=== PATIENT | female | born 1945 | race Caucasian/White ===

== ENCOUNTER 2021-05-30 09:58 | Inpatient (IN) | payer BC, MEDICARE ==
--- NOTE | 2021-05-30 10:46 | EDM.PDOC ---
ED HPI GENERAL MEDICAL PROBLEM - General Chief Complaint: General Stated Complaint: WEAK VIA NORMAL Time Seen by Provider: 05/30/21 10:20 Source of Information: Reports: Patient, EMS, Family History Limitations: Reports: No Limitations - History of Present Illness INITIAL COMMENTS - FREE TEXT/NARRATIVE: 75-year-old female brought in by ambulance because of progressive weakness, inability to care for herself, persistent low back and hip pain and generalized malaise. 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 She has not seen a primary care provider in 12 years. She does not consume alcohol. They set her up with an outpatient appointment for gastroenterology and neurology but the patient feels like she is progressively worsening at home, becoming more weak and unable to get around her apartment so she called the ambulance and asked to be brought here for a "second opinion". She is tearful, very depressed, and shares several stories of past visits to specialty providers such as neurology that she described as "humiliating". She was not impressed with her visit to [facility] because they did not listen to her. She feels she has been dwindling and progressively worsening for weeks to months. The records were obtained from [facility]. Onset: Unknown/Unsure Duration: Chronic Location: Reports: Other (Most of her physical symptoms are in her low back and hips, chronic pain issues) Worsens with: Reports: Other (Trying to ambulate is very difficult, her legs are "giving out".) Associated Symptoms: Reports: Malaise, Weakness, Other (Denies abdominal pain). Denies: Confusion, Chest Pain, Cough, Fever/Chills, Shortness of Breath Right Leg Pain Score (Numeric/FACES): 4 - Related Data Allergies Allergy/AdvReac Type Severity Reaction Status Date / Time No Known Allergies Allergy Verified 05/30/21 10:08 Home Meds: Home Meds Cyclobenzaprine [Flexeril] 10 mg PO ASDIRECTED PRN 05/30/21 [History] traMADol [Ultram] 50 mg PO ASDIRECTED PRN 05/30/21 [History] Social & Family History - Tobacco Use Tobacco Use Status *Q: Current Every Day Tobacco User Years of Tobacco use: 40 Packs/Tins Daily: 1 - Recreational Drug Use Recreational Drug Use: No ED ROS GENERAL - Review of Systems Review Of Systems: See Below Constitutional: Reports: Malaise, Decreased Appetite. Denies: Fever, Chills HEENT: Denies: Vision Change Respiratory: Denies: Shortness of Breath Cardiovascular: Denies: Chest Pain, Palpitations GI/Abdominal: Reports: Decreased Appetite, Distension. Denies: Abdominal Pain, Vomiting : Reports: Other (No symptoms but urine is dark) Musculoskeletal: Reports: Back Pain, Other (Bilateral hip pain) Skin: Reports: Jaundice, Pallor Neurological: Reports: Difficulty Walking, Weakness, Gait Disturbance ED EXAM, GENERAL - Physical Exam Exam: See Below Exam Limited By: No Limitations General Appearance: Alert, No Apparent Distress, Other (Very weak appearing, and unkempt tearful elderly female) Eye Exam: Bilateral Eye: EOMI, Other (Obvious scleral jaundice is present) Head: Atraumatic Neck: Supple, Non-Tender Respiratory/Chest: Lungs Clear Cardiovascular: Regular Rate, Rhythm, No Murmur GI/Abdominal: Soft, Non-Tender Extremities: Pedal Edema, Other (Patient has symmetric 1+ pitting edema of the lower extremities through the ankles and feet) Neurological: Alert, Oriented, No Motor/Sensory Deficits. No: Inattentive, Confused Psychiatric: Flat Affect Skin Exam: Warm, Dry, Other (Patient looks pale and possibly jaundiced) Course - Vital Signs Last Recorded V/S: Last Vital Signs Temp 97.9 F 05/30/21 12:01 Pulse 67 05/30/21 13:11 Resp 16 05/30/21 13:11 BP 155/52 H 05/30/21 13:11 Pulse Ox 94 L 05/30/21 13:11 - Orders/Labs/Meds Orders: Medication Orders Enoxaparin Sodium (Enoxaparin 40 Mg/0.4 Ml Syringe) 40 mg SUBCUT Q24H [facility] Last Admin: 05/30/21 14:33 Dose: 40 mg Documented by: JADEN Ondansetron HCl (Ondansetron 4 Mg/2 Ml Sdv) 4 mg IV Q4H PRN PRN Reason: Nausea/Vomiting Polyethylene Glycol (Polyethylene Glycol 3350 Powder 17 Gm Packet) 17 gm PO DAILY PRN PRN Reason: Constipation Tramadol HCl (Tramadol 50 Mg Tab) 50 mg PO Q4H PRN PRN Reason: Pain Last Admin: 05/30/21 14:37 Dose: 50 mg Documented by: JADEN Labs: Laboratory Tests 05/30/21 05/30/21 05/30/21 Range/Units 10:50 10:50 10:50 WBC 9.5 (4.5-11.0) K/uL RBC 3.18 L (3.30-5.50) M/uL Hgb 11.1 L (12.0-15.0) g/dL Hct 31.4 L (36.0-48.0) % MCV 99 H (80-98) fL MCH 35 H (27-31) pg MCHC 35 (32-36) % Plt Count 166 (150-400) K/uL Neut % (Auto) 67.9 H (36-66) % Lymph % (Auto) 16.3 L (24-44) % [place] % (Auto) 11.7 H (2-6) % Eos % (Auto) 3.3 (2-4) % Baso % (Auto) 0.8 (0-1) % PT (9.2-10.6) sec INR Sodium 138 L (140-148) mmol/L Potassium 3.5 L (3.6-5.2) mmol/L Chloride 110 H (100-108) mmol/L Carbon Dioxide 20 L (21-32) mmol/L Anion Gap 11.5 (5.0-14.0) mmol/L BUN 13 (7-18) mg/dL Creatinine 0.9 (0.6-1.0) mg/dL Est Cr Clr Drug Dosing 46.05 mL/min Estimated GFR (MDRD) > 60 (>60) Glucose 84 (74-106) mg/dL Lactic Acid 1.3 (0.4-2.0) mmol/L Calcium 8.0 L (8.5-10.1) mg/dL Total Bilirubin 3.0 H (0.2-1.0) mg/dL AST 128 H (15-37) U/L ALT 101 H (12-78) U/L Alkaline Phosphatase 187 H (46-116) U/L Ammonia (11-32) umol/L C-Reactive Protein 2.58 H (0.0-0.3) mg/dL Total Protein 6.1 L (6.4-8.2) g/dL Albumin 1.7 L (3.4-5.0) g/dL Globulin 4.4 H (2.3-3.5) g/dL Albumin/Globulin Ratio 0.4 L (1.2-2.2) 05/30/21 05/30/21 Range/Units 12:05 12:05 WBC (4.5-11.0) K/uL RBC (3.30-5.50) M/uL Hgb (12.0-15.0) g/dL Hct (36.0-48.0) % MCV (80-98) fL MCH (27-31) pg MCHC (32-36) % Plt Count (150-400) K/uL Neut % (Auto) (36-66) % Lymph % (Auto) (24-44) % [place] % (Auto) (2-6) % Eos % (Auto) (2-4) % Baso % (Auto) (0-1) % PT 14.6 H (9.2-10.6) sec INR 1.5 Sodium (140-148) mmol/L Potassium (3.6-5.2) mmol/L Chloride (100-108) mmol/L Carbon Dioxide (21-32) mmol/L Anion Gap (5.0-14.0) mmol/L BUN (7-18) mg/dL Creatinine (0.6-1.0) mg/dL Est Cr Clr Drug Dosing mL/min Estimated GFR (MDRD) (>60) Glucose (74-106) mg/dL Lactic Acid (0.4-2.0) mmol/L Calcium (8.5-10.1) mg/dL Total Bilirubin (0.2-1.0) mg/dL AST (15-37) U/L ALT (12-78) U/L Alkaline Phosphatase (46-116) U/L Ammonia 15 (11-32) umol/L C-Reactive Protein (0.0-0.3) mg/dL Total Protein (6.4-8.2) g/dL Albumin (3.4-5.0) g/dL Globulin (2.3-3.5) g/dL Albumin/Globulin Ratio (1.2-2.2) Meds: Medications Generic Name Dose Route Start Last Admin Trade Name Freq PRN Reason Stop Dose Admin Enoxaparin Sodium 40 mg 05/30/21 14:00 05/30/21 14:33 Enoxaparin 40 Mg/0.4 Ml Syringe SUBCUT 40 mg Q24H JED Administration Ondansetron HCl 4 mg 05/30/21 13:11 Ondansetron 4 Mg/2 Ml Sdv IV Q4H PRN Nausea/Vomiting Polyethylene Glycol 17 gm 05/30/21 13:11 Polyethylene Glycol 3350 Powder 17 Gm Packet PO DAILY PRN Constipation Tramadol HCl 50 mg 05/30/21 13:11 05/30/21 14:37 Tramadol 50 Mg Tab PO 50 mg Q4H PRN Administration Pain - Re-Assessments/Exams Free Text/Narrative Re-Assessment/Exam: 05/30/21 12:28 Records from [facility] were reviewed thoroughly, CRP was elevated, lactic acid elevated, and bilirubin 4.7. Labs were repeated, patient remained stable and labs actually returned improved, lactic acid is now normal, bilirubin 3.0 and CRP improved. She still feels too weak to go home, I feel she may be at risk of falling or is unable to care for herself at home so I asked Dr. Richey to consider admission for strengthening and rehydration. Ammonia was added which was normal. Departure - Departure Time of Disposition: 12:55 Disposition: Refer to Observation Clinical Impression: Generalized weakness Cirrhosis of liver Qualifiers: Hepatic cirrhosis type: unspecified hepatic cirrhosis Ascites presence: with ascites Qualified Code(s): K74.60 - Unspecified cirrhosis of liver; R18.8 - Other ascites - Discharge Information Sepsis Event Note (ED) - Evaluation Sepsis Screening Result: No Definite Risk - Focused Exam Vital Signs: Vital Signs Temp Pulse Resp BP Pulse Ox 05/30/21 12:01 97.9 F 87 14 152/49 H 98 05/30/21 10:00 98.3 F 74 18 151/59 H 94 L
[2021-05-30] MEDS ORDERED: traMADol 50 MG Tab PO PRN (13:11)
[2021-05-30] MEDS ORDERED: Ondansetron 4 MG/2 ML SDV IV PRN (13:11)
--- NOTE | 2021-05-30 13:11 | PCM.HP.2 ---
H&P History of Present Illness - General Date of Service: 05/30/21 Admit Problem/Dx: Admission Diagnosis/Problem Admission Diagnosis/Problem Weakness Source of Information: Patient, Provider, RN Notes Reviewed History Limitations: Reports: No Limitations - History of Present Illness Initial Comments - Free Text/Narative: Ms. Ndiaye is a 75-year-old woman who was admitted through the emergency department with generalized weakness, low back pain, left leg pain/weakness, and hepatic cirrhosis. She has had difficulty with low back and leg pain for the past several years. Approximately 1 year ago pain became worse and she has had a hard time functioning. Pain is been worse over the past few weeks and for the last week she is experienced weakness in her left leg. She was seen and evaluated in the emergency department at another facility last week, because of progressive weakness. Laboratory studies showed elevated liver tests with bilirubin of just over 4. CT scan of the abdomen showed evidence of hepatic cirrhosis. She was able to ambulate at that time so she was discharged home and recommended follow-up with gastroenterology. Over the last week she has d eveloped weakness in her left leg, to the point that she has been unable to ambulate. She was brought into our emergency department by ambulance. Laboratory studies obtained today show improvement in liver studies, bilirubin is now 3.0. She denies any history of significant alcohol use and prior to last week was unaware that she had significant liver disease. She has not been seen for regular health care over the past 12 years. Right Leg Pain Score (Numeric/FACES): 4 - Related Data Allergies/Adverse Reactions: Allergies Allergy/AdvReac Type Severity Reaction Status Date / Time No Known Allergies Allergy Verified 05/30/21 10:08 Home Medications: Home Meds Cyclobenzaprine [Flexeril] 10 mg PO ASDIRECTED PRN 05/30/21 [History] traMADol [Ultram] 50 mg PO ASDIRECTED PRN 05/30/21 [History] Social & Family History - Tobacco Use Tobacco Use Status *Q: Current Every Day Tobacco User Years of Tobacco use: 40 Packs/Tins Daily: 1 - Recreational Drug Use Recreational Drug Use: No H&P Review of Systems - Review of Systems: Review Of Systems: See Below General: Reports: Weakness, Fatigue, Decreased Appetite. Denies: Fever, Chills HEENT: Reports: No Symptoms Pulmonary: Reports: No Symptoms Cardiovascular: Reports: No Symptoms Gastrointestinal: Reports: No Symptoms Genitourinary: Reports: No Symptoms Musculoskeletal: Reports: Back Pain, Leg Pain Skin: Reports: No Symptoms Psychiatric: Reports: No Symptoms Neurological: Reports: Difficulty Walking, Weakness. Denies: Confusion, Dizziness, Change in Speech Hematologic/Lymphatic: Reports: No Symptoms Immunologic: Reports: No Symptoms Exam - Exam Exam: See Below - Vital Signs Vital Signs: Last Vital Signs Temp 97.9 F 05/30/21 12:01 Pulse 87 05/30/21 12:01 Resp 14 05/30/21 12:01 BP 152/49 H 05/30/21 12:01 Pulse Ox 98 05/30/21 12:01 Weight: 130 lb - Exam Quality Assessment: DVT Prophylaxis General: Alert, Oriented, Cooperative, Moderate Distress HEENT: Conjunctiva Clear, Hearing Intact, Mucosa Moist & [place], Normal Nasal Septum, Posterior Pharynx Clear, Pupils Equal Neck: Supple, Trachea Midline Lungs: Clear to Auscultation, Normal Respiratory Effort Cardiovascular: Regular Rate, Regular Rhythm, Normal S1, Normal S2 GI/Abdominal Exam: Soft, Non-Tender, No Organomegaly, No Distention Extremities: Non-Tender, No Pedal Edema Skin: Warm, Dry, Intact Neurological: Cranial Nerves Intact, Normal Speech, Sensation Intact, Focal Deficit (Left leg weakness). No: Strength Equal Bilateral Neuro Extensive - Mental Status: Alert, Oriented x3, Normal Mood/Affect, Normal Cognition, Memory Intact - Patient Data Lab Results Last 24 hrs: Laboratory Results - last 24 hr 05/30/21 05/30/21 05/30/21 Range/Units 10:50 10:50 10:50 WBC 9.5 (4.5-11.0) K/uL RBC 3.18 L (3.30-5.50) M/uL Hgb 11.1 L (12.0-15.0) g/dL Hct 31.4 L (36.0-48.0) % MCV 99 H (80-98) fL MCH 35 H (27-31) pg MCHC 35 (32-36) % Plt Count 166 (150-400) K/uL Neut % (Auto) 67.9 H (36-66) % Lymph % (Auto) 16.3 L (24-44) % [place] % (Auto) 11.7 H (2-6) % Eos % (Auto) 3.3 (2-4) % Baso % (Auto) 0.8 (0-1) % PT (9.2-10.6) sec INR Sodium 138 L (140-148) mmol/L Potassium 3.5 L (3.6-5.2) mmol/L Chloride 110 H (100-108) mmol/L Carbon Dioxide 20 L (21-32) mmol/L Anion Gap 11.5 (5.0-14.0) mmol/L BUN 13 (7-18) mg/dL Creatinine 0.9 (0.6-1.0) mg/dL Est Cr Clr Drug Dosing 46.05 mL/min Estimated GFR (MDRD) > 60 (>60) Glucose 84 (74-106) mg/dL Lactic Acid 1.3 (0.4-2.0) mmol/L Calcium 8.0 L (8.5-10.1) mg/dL Total Bilirubin 3.0 H (0.2-1.0) mg/dL AST 128 H (15-37) U/L ALT 101 H (12-78) U/L Alkaline Phosphatase 187 H (46-116) U/L Ammonia (11-32) umol/L C-Reactive Protein 2.58 H (0.0-0.3) mg/dL Total Protein 6.1 L (6.4-8.2) g/dL Albumin 1.7 L (3.4-5.0) g/dL Globulin 4.4 H (2.3-3.5) g/dL Albumin/Globulin Ratio 0.4 L (1.2-2.2) 05/30/21 05/30/21 Range/Units 12:05 12:05 WBC (4.5-11.0) K/uL RBC (3.30-5.50) M/uL Hgb (12.0-15.0) g/dL Hct (36.0-48.0) % MCV (80-98) fL MCH (27-31) pg MCHC (32-36) % Plt Count (150-400) K/uL Neut % (Auto) (36-66) % Lymph % (Auto) (24-44) % [place] % (Auto) (2-6) % Eos % (Auto) (2-4) % Baso % (Auto) (0-1) % PT 14.6 H (9.2-10.6) sec INR 1.5 Sodium (140-148) mmol/L Potassium (3.6-5.2) mmol/L Chloride (100-108) mmol/L Carbon Dioxide (21-32) mmol/L Anion Gap (5.0-14.0) mmol/L BUN (7-18) mg/dL Creatinine (0.6-1.0) mg/dL Est Cr Clr Drug Dosing mL/min Estimated GFR (MDRD) (>60) Glucose (74-106) mg/dL Lactic Acid (0.4-2.0) mmol/L Calcium (8.5-10.1) mg/dL Total Bilirubin (0.2-1.0) mg/dL AST (15-37) U/L ALT (12-78) U/L Alkaline Phosphatase (46-116) U/L Ammonia 15 (11-32) umol/L C-Reactive Protein (0.0-0.3) mg/dL Total Protein (6.4-8.2) g/dL Albumin (3.4-5.0) g/dL Globulin (2.3-3.5) g/dL Albumin/Globulin Ratio (1.2-2.2) Result Diagrams: 05/30/21 10:50 05/30/21 10:50 Sepsis Event Note - Evaluation Sepsis Screening Result: No Definite Risk - Focused Exam Vital Signs: Vital Signs Temp Pulse Resp BP Pulse Ox 05/30/21 12:01 97.9 F 87 14 152/49 H 98 05/30/21 10:00 98.3 F 74 18 151/59 H 94 L *Q Meaningful Use (ADM) - VTE Risk Assess *Q Each Risk Factor Represents 1 Point: Obesity ( BMI > 25 kg/m2) Total Score 1 Point Risk Factors: 1 Each Risk Factor Represents 2 Points: Age 60 - 74 Years Total Score 2 Point Risk Factors: 2 Each Risk Factor Represents 3 Points: None Total Score 3 Point Risk Factors: 0 Each Risk Factor Represents 5 Points: None Total Score 5 Point Risk Factors: 0 Venous Thromboembolism Risk Factor Score *Q: 3 Problem List Initiated/Reviewed/Updated: Yes Orders Last 24hrs: Active Orders 24 hr Category Date Time Status Patient Status Manage Transfer [TRANSFER] Routine ADT 05/30/21 12:19 Active Resuscitation Status Routine Resus Stat 05/30/21 12:21 Ordered Assessment/Plan Comment:: ASSESSMENT AND PLAN LOW BACK AND LEFT LEG PAIN-associated with left leg weakness over the past week. She has had pain for some time but it has been significantly worse to the point that she is unable to ambulate. -CT scan of the head with and without contrast -MRI of the low back in a.m. -Pain medication as needed -Physical therapy consult HEPATIC CIRRHOSIS-underlying etiology not apparent, she strongly denies alcohol use. -Further laboratory tests; hepatitis profile, TU, ferritin, ceruloplasmin, anti-smooth muscle antibody, and antimitochondrial antibody -Outpatient follow-up with gastroenterology GENERALIZED WEAKNESS-likely secondary to low back pain and left leg weakness MAINTENANCE ISSUES -DVT prophylaxis; Lovenox 40 mg subcu daily -GI prophylaxis; not indicated -Uribe catheter; not indicated -Nutrition; regular diet -Nicotine dependence; not required CODE STATUS-FULL CODE ADMISSION STATUS-this patient will be admitted to observation status, expect no more than a one night hospital stay for evaluation and management of problems as outlined above. DISPOSITION-anticipate discharge to home after the hospital stay. PRIMARY CARE PROVIDER-she currently does not have a primary care provider - Mortality Measure Prognosis:: Good
[2021-05-30 14:07] LABS: CORONAVIRUS COVID-19 NAA NEGATIVE (NEGATIVE)
[2021-05-30] MEDS: Enoxaparin 40 MG/0.4 ML Syringe SUBCUT SCH (14:33)
[2021-05-30] MEDS ORDERED: Iopamidol 612 MG/ML 100 ML Bottle IV SCH (16:30)
[2021-05-30] MEDS ORDERED: Sodium Chloride 0.9% 80 ML IV SCH (16:30)
[2021-05-30] MEDS ORDERED: HYDROmorphone 0.5 MG/0.5 ML Syringe IVPUSH PRN (16:45)
[2021-05-30] MEDS ORDERED: Potassium Chloride 20 MEQ Tab.ER PO ONE (17:09)
[2021-05-30] MEDS ORDERED: Sodium Chloride 0.9% 1,000 ML IV SCH (17:15)
--- NOTE | 2021-05-30 17:56 | CRLCT ---
For Patients: As a result of the Century Cures Act, medical imaging exams and procedure reports are released immediately into your electronic medical record. You may view this report before your referring provider. If you have questions, please contact your health care provider. INDICATION: Left leg weakness for 1 week TECHNIQUE: Head CT without and with 100 cc Isovue-300 IV contrast. COMPARISON: None FINDINGS: CSF spaces: Within normal limits for age. Brain parenchyma: There are nonspecific low attenuation white matter changes consistent with chronic microvascular disease. No sign of mass, hemorrhage, or midline shift. Bilateral basal ganglia lacunar infarctions appear old. There is a 1.1 x 1.1 cm round hypodensity adjacent to body of the right lateral ventricle. No abnormal enhancement. Skull base and calvarium: The visualized paranasal sinuses and mastoid air cells demonstrate no acute or significant findings. The visualized orbits are grossly unremarkable. No skull fractures. IMPRESSION: 1. Round hypodensity adjacent to the body of the right lateral ventricle, indeterminate. This could represent a subacute or old lacunar infarction. There is no surrounding edema. Multiple old bilateral basal ganglia lacunar infarctions are also identified. 2. No abnormal enhancement. Please note that all CT scans at this facility use dose modulation, iterative reconstruction, and/or weight-based dosing when appropriate to reduce radiation dose to as low as reasonably achievable. Dictated by Greta Stapleton MD @ 05/30/2021 5:55:11 PM (Electronically Signed)
[2021-05-31] MEDS: oxyCODONE 5 MG Tab PO PRN ×3 (08:37→21:52)
[2021-05-31] MEDS ORDERED: LORazepam 0.5 MG Tab PO ONE (10:00)
[2021-05-31 11:11] LABS: HBSAG SCREEN Negative (Negative); HEP A AB, IGM Negative (Negative); HEP B CORE AB, IGM Negative (Negative); HEP C VIRUS AB 0.2 s/co ratio (0.0-0.9)
[2021-05-31] MEDS: Enoxaparin 40 MG/0.4 ML Syringe SUBCUT SCH (13:13)
--- NOTE | 2021-05-31 15:28 | PCM.PN ---
- General Info Date of Service: 05/31/21 Subjective Update: Ms. Ndiaye reports improved pain control since admission, with use of current pain meds. Liver studies have been stable today compared to admission. 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 CT scan of the lumbar spine is pending at the time of this dictation. Functional Status: Reports: Urinating - Review of Systems General: Reports: Weakness, Fatigue. Denies: Fever, Chills Pulmonary: Reports: No Symptoms Cardiovascular: Reports: No Symptoms Gastrointestinal: Reports: No Symptoms Musculoskeletal: Reports: Back Pain, Leg Pain - Patient Data Vitals - Most Recent: Last Vital Signs Temp 97.5 F 05/31/21 10:11 Pulse 95 05/31/21 10:11 Resp 20 05/31/21 10:11 BP 129/44 L 05/31/21 10:11 Pulse Ox 93 L 05/31/21 10:11 Weight - Most Recent: 147 lb I&O - Last 24 Hours: Intake & Output 05/31/21 05/31/21 05/31/21 06:59 14:59 22:59 Intake Total 1999 220 Balance 1999 220 Lab Results Last 24 Hours: Laboratory Results - last 24 hr 05/30/21 05/31/21 05/31/21 Range/Units 13:30 05:41 05:41 WBC 9.4 (4.5-11.0) K/uL RBC 3.19 L (3.30-5.50) M/uL Hgb 10.9 L (12.0-15.0) g/dL Hct 31.7 L (36.0-48.0) % MCV 99 H (80-98) fL MCH 34 H (27-31) pg MCHC 34 (32-36) % Plt Count 167 (150-400) K/uL Neut % (Auto) 65.0 (36-66) % Lymph % (Auto) 19.7 L (24-44) % Jack % (Auto) 10.9 H (2-6) % Eos % (Auto) 3.7 (2-4) % Baso % (Auto) 0.7 (0-1) % Sodium 139 L (140-148) mmol/L Potassium 3.8 (3.6-5.2) mmol/L Chloride 112 H (100-108) mmol/L Carbon Dioxide 21 (21-32) mmol/L Anion Gap 9.8 (5.0-14.0) mmol/L BUN 13 (7-18) mg/dL Creatinine 0.9 (0.6-1.0) mg/dL Est Cr Clr Drug Dosing 42.01 mL/min Estimated GFR (MDRD) > 60 (>60) Glucose 68 L (74-106) mg/dL Calcium 8.0 L (8.5-10.1) mg/dL Magnesium 1.8 (1.8-2.4) mg/dL Ferritin 334 (8-388) ng/ml Total Bilirubin 2.9 H (0.2-1.0) mg/dL AST 115 H (15-37) U/L ALT 95 H (12-78) U/L Alkaline Phosphatase 180 H (46-116) U/L Lactate Dehydrogenase 329 H (82-234) U/L Total Protein 6.1 L (6.4-8.2) g/dL Albumin 1.7 L (3.4-5.0) g/dL Globulin 4.4 H (2.3-3.5) g/dL Albumin/Globulin Ratio 0.4 L (1.2-2.2) Hepatitis A IgM Ab Negative (Negative) Hep Bs Antigen Negative (Negative) Hep B Core IgM Ab Negative (Negative) Hepatitis C Antibody 0.2 (0.0-0.9) s/co ratio Med Orders - Current: Current Medications Enoxaparin Sodium (Enoxaparin 40 Mg/0.4 Ml Syringe) 40 mg SUBCUT Q24H [facility] Last Admin: 05/31/21 13:13 Dose: 40 mg Documented by: Hydromorphone HCl (Hydromorphone 0.5 Mg/0.5 Ml Syringe) 0.5 mg IVPUSH Q3H PRN PRN Reason: Pain (severe 7-10) Ondansetron HCl (Ondansetron 4 Mg/2 Ml Sdv) 4 mg IV Q4H PRN PRN Reason: Nausea/Vomiting Oxycodone HCl (Oxycodone 5 Mg Tab) 5 mg PO Q4H PRN PRN Reason: Pain (moderate 4-6) Last Admin: 05/31/21 08:37 Dose: 5 mg Documented by: Polyethylene Glycol (Polyethylene Glycol 3350 Powder 17 Gm Packet) 17 gm PO DAILY PRN PRN Reason: Constipation Discontinued Medications Sodium Chloride (Normal Saline) 80 mls @ 3 mls/sec IV ASDIRECTED [facility] Stop: 05/30/21 16:31 Last Admin: 05/30/21 16:44 Dose: 3 mls/sec Documented by: Sodium Chloride (Normal Saline) 1,000 mls @ 100 mls/hr IV ASDIRECTED [facility] Last Admin: 05/30/21 18:11 Dose: 100 mls/hr Documented by: Iopamidol (Iopamidol 612 Mg/Ml 100 Ml Bottle) 100 ml IV . DIRECTED [facility] Stop: 05/30/21 16:31 Last Admin: 05/30/21 16:44 Dose: 100 ml Documented by: Lorazepam (Lorazepam 0.5 Mg Tab) 0.5 mg PO ONETIME ONE Stop: 05/31/21 10:01 Last Admin: 05/31/21 11:05 Dose: 0.5 mg Documented by: Potassium Chloride (Potassium Chloride 20 Meq Tab.Er) 40 meq PO ONETIME ONE Stop: 05/30/21 17:10 Last Admin: 05/30/21 18:03 Dose: 40 meq Documented by: Tramadol HCl (Tramadol 50 Mg Tab) 50 mg PO Q4H PRN PRN Reason: Pain Last Admin: 05/30/21 14:37 Dose: 50 mg Documented by: - Exam Quality Assessment: DVT Prophylaxis General: Alert, Oriented, Cooperative, Moderate Distress Lungs: Clear to Auscultation, Normal Respiratory Effort Cardiovascular: Regular Rate, Regular Rhythm, No Murmurs GI/Abdominal Exam: Soft, Non-Tender, No Organomegaly, No Distention Extremities: Non-Tender, Pedal Edema - Patient Data Lab Results Last 24 hrs: Laboratory Results - last 24 hr 05/30/21 05/31/21 05/31/21 Range/Units 13:30 05:41 05:41 WBC 9.4 (4.5-11.0) K/uL RBC 3.19 L (3.30-5.50) M/uL Hgb 10.9 L (12.0-15.0) g/dL Hct 31.7 L (36.0-48.0) % MCV 99 H (80-98) fL MCH 34 H (27-31) pg MCHC 34 (32-36) % Plt Count 167 (150-400) K/uL Neut % (Auto) 65.0 (36-66) % Lymph % (Auto) 19.7 L (24-44) % Jack % (Auto) 10.9 H (2-6) % Eos % (Auto) 3.7 (2-4) % Baso % (Auto) 0.7 (0-1) % Sodium 139 L (140-148) mmol/L Potassium 3.8 (3.6-5.2) mmol/L Chloride 112 H (100-108) mmol/L Carbon Dioxide 21 (21-32) mmol/L Anion Gap 9.8 (5.0-14.0) mmol/L BUN 13 (7-18) mg/dL Creatinine 0.9 (0.6-1.0) mg/dL Est Cr Clr Drug Dosing 42.01 mL/min Estimated GFR (MDRD) > 60 (>60) Glucose 68 L (74-106) mg/dL Calcium 8.0 L (8.5-10.1) mg/dL Magnesium 1.8 (1.8-2.4) mg/dL Ferritin 334 (8-388) ng/ml Total Bilirubin 2.9 H (0.2-1.0) mg/dL AST 115 H (15-37) U/L ALT 95 H (12-78) U/L Alkaline Phosphatase 180 H (46-116) U/L Lactate Dehydrogenase 329 H (82-234) U/L Total Protein 6.1 L (6.4-8.2) g/dL Albumin 1.7 L (3.4-5.0) g/dL Globulin 4.4 H (2.3-3.5) g/dL Albumin/Globulin Ratio 0.4 L (1.2-2.2) Hepatitis A IgM Ab Negative (Negative) Hep Bs Antigen Negative (Negative) Hep B Core IgM Ab Negative (Negative) Hepatitis C Antibody 0.2 (0.0-0.9) s/co ratio Result Diagrams: 05/31/21 05:41 05/31/21 05:41 Sepsis Event Note - Evaluation Sepsis Screening Result: No Definite Risk - Focused Exam Vital Signs: Vital Signs Temp Pulse Resp BP Pulse Ox 05/31/21 10:11 97.5 F 95 20 129/44 L 93 L 05/31/21 07:33 98.0 F 85 20 144/48 H 91 L - Problem List Review Problem List Initiated/Reviewed/Updated: Yes - My Orders Last 24 Hours: My Active Orders 05/30/21 16:45 HYDROmorphone [Dilaudid] 0.5 mg IVPUSH Q3H PRN 05/30/21 16:47 oxyCODONE 5 mg PO Q4H PRN 05/31/21 05:41 ACTIN (SMOOTH MUSCLE) ANTIBODY Routine MITOCHONDRIAL (M2) ANTIBODY Routine 05/31/21 08:00 Lumbar Spine Comp w Cont [MR] Urgent 05/31/21 12:59 Lumbar Spine wo Cont [CT] Routine 05/31/21 15:23 Convert IV to Saline Lock [OM.PC] Routine 06/01/21 05:00 COMPREHENSIVE METABOLIC PN,CMP [CHEM] Timed - Plan Plan:: ASSESSMENT AND PLAN LOW BACK AND LEFT LEG PAIN-associated with left leg weakness over the past week. She has had pain for some time but it has been significantly worse to the point that she is unable to ambulate. CT scan of the head showed no acute abnormalities. She was unable to stay still enough to proceed with MRI -CT scan of lumbar spine pending -Pain medication as needed -Physical therapy consult HEPATIC CIRRHOSIS-underlying etiology not apparent, she strongly denies alcohol use. Labs obtained today are unremarkable -Reference labs are pending -Outpatient follow-up with gastroenterology GENERALIZED WEAKNESS-likely secondary to low back pain and left leg weakness MAINTENANCE ISSUES -DVT prophylaxis; Lovenox 40 mg subcu daily -GI prophylaxis; not indicated -Uribe catheter; not indicated -Nutrition; regular diet -Nicotine dependence; not required CODE STATUS-FULL CODE ADMISSION STATUS-this patient will be admitted to observation status, expect no more than a one night hospital stay for evaluation and management of problems as outlined above. DISPOSITION-anticipate discharge to home after the hospital stay. PRIMARY CARE PROVIDER-she currently does not have a primary care provider
--- NOTE | 2021-05-31 15:34 | CT ---
Lumbar Spine wo Cont CLINICAL HISTORY: Back pain COMPARISON: None TECHNIQUE: Multiple contiguous axial sections were obtained of the lumbar spine without the IV infusion of contrast material This was followed by sagittal and coronal MPRs. Auto dosage reduction and iterative reconstruction techniques employed. FINDINGS: Patient was initially scheduled for an MR of the lumbar spine. Due to back pain patient was unable to remain still for the exam which was nondiagnostic. Vertebral body heights were maintained. There is mild diffuse spondylosis. There is narrowing of the L5-S1 disc space. There is moderate osteoarthritic change throughout the mid to the lower lumbar facets. There is a grade 1 anterolisthesis of L4 on L5. Axial images show concentric disc bulging at L1-2. L2-3 disc shows broad-based disc osteophyte complex. There is broad-based disc osteophyte complex at L3-4 as well as some posterior osteoarthropathy. This causes central canal stenosis with encroachment on the lateral recesses. There is moderate the broad-based disc osteophyte formation at L4-5 as well as significant facet osteoarthropathy. This causes severe central canal stenosis and significant encroachment on the lateral recesses. There is concentric disc osteophyte formation at L5-S1 with facet osteoarthropathy. There is severe encroachment on the lateral recesses and moderate bilateral neural foraminal encroachment. Incidental note of moderate abdominal ascites. There is some residual contrast in the kidneys from previous head CT. IMPRESSION: Moderate diffuse degenerative disc disease and facet osteoarthropathy Moderate central canal stenosis at L3-4 with encroachment on the lateral recesses Severe central canal stenosis and significant encroachment lateral recesses at L4-5 Bilateral lateral recess and neural foraminal encroachment at L5-S1 Moderate abdominal ascites of unknown etiology
[2021-06-01] MEDS: oxyCODONE 5 MG Tab PO PRN ×4 (04:55→18:07)
[2021-06-01] MEDS: Enoxaparin 40 MG/0.4 ML Syringe SUBCUT SCH (13:21)
--- NOTE | 2021-06-01 17:26 | PCM.PN ---
- General Info Date of Service: 06/01/21 Subjective Update: Ms. Ndiaye continues to experience significant back pain radiating especially into her left leg. CT scan showed evidence of significant lumbar spinal stenosis. Because of her elevated INR and PT from liver disease she is not a candidate for epidural steroid injection. With her overall severe debilitation she is not a candidate for surgery until she regains some strength and overall health. Functional Status: Reports: Urinating - Review of Systems General: Reports: Weakness, Fatigue, Malaise. Denies: Fever, Chills Pulmonary: Reports: No Symptoms Cardiovascular: Reports: No Symptoms Gastrointestinal: Reports: No Symptoms Musculoskeletal: Reports: Back Pain, Leg Pain - Patient Data Vitals - Most Recent: Last Vital Signs Temp 98.3 F 06/01/21 14:48 Pulse 91 06/01/21 14:48 Resp 18 06/01/21 14:48 BP 139/52 L 06/01/21 14:48 Pulse Ox 93 L 06/01/21 14:48 Weight - Most Recent: 147 lb Lab Results Last 24 Hours: Laboratory Results - last 24 hr 05/30/21 05/30/21 06/01/21 Range/Units 13:30 13:30 05:04 PT (9.2-10.6) sec INR Sodium 139 L (140-148) mmol/L Potassium 3.7 (3.6-5.2) mmol/L Chloride 112 H (100-108) mmol/L Carbon Dioxide 19 L (21-32) mmol/L Anion Gap 11.7 (5.0-14.0) mmol/L BUN 12 (7-18) mg/dL Creatinine 0.8 (0.6-1.0) mg/dL Est Cr Clr Drug Dosing 47.26 mL/min Estimated GFR (MDRD) > 60 (>60) Glucose 77 (74-106) mg/dL Calcium 8.2 L (8.5-10.1) mg/dL Total Bilirubin 2.4 H (0.2-1.0) mg/dL AST 102 H (15-37) U/L ALT 83 H (12-78) U/L Alkaline Phosphatase 163 H (46-116) U/L Total Protein 5.8 L (6.4-8.2) g/dL Albumin 1.6 L (3.4-5.0) g/dL Globulin 4.2 H (2.3-3.5) g/dL Albumin/Globulin Ratio 0.4 L (1.2-2.2) Ceruloplasmin 28.8 (19.0-39.0) mg/dL TU Ref Lab Negative (.) 06/01/21 Range/Units 05:04 PT 16.2 H (9.2-10.6) sec INR 1.6 Sodium (140-148) mmol/L Potassium (3.6-5.2) mmol/L Chloride (100-108) mmol/L Carbon Dioxide (21-32) mmol/L Anion Gap (5.0-14.0) mmol/L BUN (7-18) mg/dL Creatinine (0.6-1.0) mg/dL Est Cr Clr Drug Dosing mL/min Estimated GFR (MDRD) (>60) Glucose (74-106) mg/dL Calcium (8.5-10.1) mg/dL Total Bilirubin (0.2-1.0) mg/dL AST (15-37) U/L ALT (12-78) U/L Alkaline Phosphatase (46-116) U/L Total Protein (6.4-8.2) g/dL Albumin (3.4-5.0) g/dL Globulin (2.3-3.5) g/dL Albumin/Globulin Ratio (1.2-2.2) Ceruloplasmin (19.0-39.0) mg/dL TU Ref Lab (.) Med Orders - Current: Current Medications Dexamethasone (Dexamethasone 4 Mg/Ml Sdv) 4 mg IVPUSH Q12H [facility] Enoxaparin Sodium (Enoxaparin 40 Mg/0.4 Ml Syringe) 40 mg SUBCUT Q24H [facility] Last Admin: 06/01/21 13:21 Dose: 40 mg Documented by: Furosemide (Furosemide 20 Mg/2 Ml Vial) 20 mg IVPUSH NOW ONE Stop: 06/01/21 17:31 Gabapentin (Gabapentin 100 Mg Cap) 100 mg PO BID [facility] Hydromorphone HCl (Hydromorphone 0.5 Mg/0.5 Ml Syringe) 0.5 mg IVPUSH Q3H PRN PRN Reason: Pain (severe 7-10) Last Admin: 06/01/21 16:07 Dose: 0.5 mg Documented by: Ondansetron HCl (Ondansetron 4 Mg/2 Ml Sdv) 4 mg IV Q4H PRN PRN Reason: Nausea/Vomiting Oxycodone HCl (Oxycodone 5 Mg Tab) 5 mg PO Q4H PRN PRN Reason: Pain (moderate 4-6) Last Admin: 06/01/21 13:29 Dose: 5 mg Documented by: Polyethylene Glycol (Polyethylene Glycol 3350 Powder 17 Gm Packet) 17 gm PO DAILY PRN PRN Reason: Constipation Discontinued Medications Sodium Chloride (Normal Saline) 80 mls @ 3 mls/sec IV ASDIRECTED [facility] Stop: 05/30/21 16:31 Last Admin: 05/30/21 16:44 Dose: 3 mls/sec Documented by: Sodium Chloride (Normal Saline) 1,000 mls @ 100 mls/hr IV ASDIRECTED [facility] Last Admin: 05/30/21 18:11 Dose: 100 mls/hr Documented by: Iopamidol (Iopamidol 612 Mg/Ml 100 Ml Bottle) 100 ml IV . DIRECTED [facility] Stop: 05/30/21 16:31 Last Admin: 05/30/21 16:44 Dose: 100 ml Documented by: Lorazepam (Lorazepam 0.5 Mg Tab) 0.5 mg PO ONETIME ONE Stop: 05/31/21 10:01 Last Admin: 05/31/21 11:05 Dose: 0.5 mg Documented by: Potassium Chloride (Potassium Chloride 20 Meq Tab.Er) 40 meq PO ONETIME ONE Stop: 05/30/21 17:10 Last Admin: 05/30/21 18:03 Dose: 40 meq Documented by: Tramadol HCl (Tramadol 50 Mg Tab) 50 mg PO Q4H PRN PRN Reason: Pain Last Admin: 05/30/21 14:37 Dose: 50 mg Documented by: - Exam Quality Assessment: DVT Prophylaxis General: Alert, Oriented, Cooperative, Moderate Distress Lungs: Clear to Auscultation, Normal Respiratory Effort, Decreased Breath Sounds Cardiovascular: Regular Rate, Regular Rhythm, No Murmurs GI/Abdominal Exam: Soft, Non-Tender, No Organomegaly, No Distention Back Exam: Vertebral Tenderness Extremities: Leg Pain - Patient Data Lab Results Last 24 hrs: Laboratory Results - last 24 hr 05/30/21 05/30/21 06/01/21 Range/Units 13:30 13:30 05:04 PT (9.2-10.6) sec INR Sodium 139 L (140-148) mmol/L Potassium 3.7 (3.6-5.2) mmol/L Chloride 112 H (100-108) mmol/L Carbon Dioxide 19 L (21-32) mmol/L Anion Gap 11.7 (5.0-14.0) mmol/L BUN 12 (7-18) mg/dL Creatinine 0.8 (0.6-1.0) mg/dL Est Cr Clr Drug Dosing 47.26 mL/min Estimated GFR (MDRD) > 60 (>60) Glucose 77 (74-106) mg/dL Calcium 8.2 L (8.5-10.1) mg/dL Total Bilirubin 2.4 H (0.2-1.0) mg/dL AST 102 H (15-37) U/L ALT 83 H (12-78) U/L Alkaline Phosphatase 163 H (46-116) U/L Total Protein 5.8 L (6.4-8.2) g/dL Albumin 1.6 L (3.4-5.0) g/dL Globulin 4.2 H (2.3-3.5) g/dL Albumin/Globulin Ratio 0.4 L (1.2-2.2) Ceruloplasmin 28.8 (19.0-39.0) mg/dL TU Ref Lab Negative (.) 06/01/21 Range/Units 05:04 PT 16.2 H (9.2-10.6) sec INR 1.6 Sodium (140-148) mmol/L Potassium (3.6-5.2) mmol/L Chloride (100-108) mmol/L Carbon Dioxide (21-32) mmol/L Anion Gap (5.0-14.0) mmol/L BUN (7-18) mg/dL Creatinine (0.6-1.0) mg/dL Est Cr Clr Drug Dosing mL/min Estimated GFR (MDRD) (>60) Glucose (74-106) mg/dL Calcium (8.5-10.1) mg/dL Total Bilirubin (0.2-1.0) mg/dL AST (15-37) U/L ALT (12-78) U/L Alkaline Phosphatase (46-116) U/L Total Protein (6.4-8.2) g/dL Albumin (3.4-5.0) g/dL Globulin (2.3-3.5) g/dL Albumin/Globulin Ratio (1.2-2.2) Ceruloplasmin (19.0-39.0) mg/dL TU Ref Lab (.) Result Diagrams: 05/31/21 05:41 06/01/21 05:04 Sepsis Event Note - Evaluation Sepsis Screening Result: No Definite Risk - Focused Exam Vital Signs: Vital Signs Temp Temp Pulse Resp BP Pulse Ox 06/01/21 14:48 98.3 F 91 18 139/52 L 93 L 06/01/21 11:00 97.1 F 87 16 138/54 L 93 L 06/01/21 07:00 98.1 F 84 18 140/52 L 97 - Problem List Review Problem List Initiated/Reviewed/Updated: Yes - My Orders Last 24 Hours: My Active Orders 06/01/21 17:15 dexAMETHasone [Decadron] 4 mg IVPUSH Q12H 06/01/21 17:30 DULoxetine [Cymbalta] 30 mg PO DAILY 06/01/21 21:00 Gabapentin [Neurontin] 100 mg PO BID 06/02/21 05:00 COMPREHENSIVE METABOLIC PN,CMP [CHEM] Timed 06/02/21 09:00 Furosemide [Lasix] 20 mg IVPUSH NOW ONE - Plan Plan:: ASSESSMENT AND PLAN LOW BACK AND LEFT LEG PAIN-associated with left leg weakness over the past week. She has had pain for some time but it has been significantly worse to the point that she is unable to ambulate. CT scan of the head showed no acute abnormalities. CT scan of the lumbar spine shows evidence of severe spinal stenosis. At this time she is not a candidate for epidural steroid injection or surgical intervention -Trial of Decadron 4 mg IV every 12 hours -Gabapentin 100 mg p.o. twice daily -Cymbalta 30 mg p.o. daily -Pain medication as needed -Physical therapy consult HEPATIC CIRRHOSIS-underlying etiology not apparent, she strongly denies alcohol use. -Reference labs are pending -Outpatient follow-up with gastroenterology GENERALIZED WEAKNESS-likely secondary to low back pain and left leg weakness MAINTENANCE ISSUES -DVT prophylaxis; Lovenox 40 mg subcu daily -GI prophylaxis; not indicated -Uribe catheter; not indicated -Nutrition; regular diet -Nicotine dependence; not required CODE STATUS-FULL CODE ADMISSION STATUS-this patient will be admitted to observation status, expect no more than a one night hospital stay for evaluation and management of problems as outlined above. DISPOSITION-anticipate discharge to home after the hospital stay. PRIMARY CARE PROVIDER-she currently does not have a primary care provider
[2021-06-01] MEDS ORDERED: Furosemide 20 MG/2 ML VIAL IVPUSH ONE (17:30)
[2021-06-01] MEDS: Dexamethasone 4 MG/ML SDV IVPUSH SCH (18:34)
[2021-06-01] MEDS: DULoxetine 30 MG Cap PO SCH (18:34)
[2021-06-01] MEDS: Gabapentin 100 MG Cap PO SCH (20:00)
[2021-06-02] MEDS: oxyCODONE 5 MG Tab PO PRN ×3 (05:02→21:00)
[2021-06-02] MEDS: Dexamethasone 4 MG/ML SDV IVPUSH SCH ×2 (05:40→17:14)
[2021-06-02] MEDS: Gabapentin 100 MG Cap PO SCH ×2 (08:44→21:00)
[2021-06-02] MEDS: DULoxetine 30 MG Cap PO SCH (08:44)
[2021-06-02] MEDS ORDERED: Furosemide 20 MG/2 ML VIAL IVPUSH ONE (09:00)
--- NOTE | 2021-06-02 13:45 | PCM.PN ---
- General Info Date of Service: 06/02/21 Subjective Update: Ms. Ndiaye has experienced mild improvement of symptoms and strength. Up to this point is required use of a lift for transfers. This morning was able to transfer with assistance of two to the chair. Pain is better controlled. Functional Status: Reports: Urinating - Review of Systems General: Reports: Weakness, Fatigue. Denies: Fever, Chills Pulmonary: Reports: No Symptoms Cardiovascular: Reports: No Symptoms Gastrointestinal: Reports: No Symptoms Genitourinary: Reports: No Symptoms Musculoskeletal: Reports: Back Pain, Leg Pain - Patient Data Vitals - Most Recent: Last Vital Signs Temp 97.1 F 06/02/21 10:54 Pulse 80 06/02/21 10:54 Resp 18 06/02/21 10:54 BP 135/54 L 06/02/21 10:54 Pulse Ox 90 L 06/02/21 10:54 Weight - Most Recent: 152 lb 8.958 oz I&O - Last 24 Hours: Intake & Output 06/01/21 06/02/21 06/02/21 22:59 06:59 14:59 Intake Total 680 300 Balance 680 300 Lab Results Last 24 Hours: Laboratory Results - last 24 hr 05/30/21 06/02/21 Range/Units 13:30 04:36 Sodium 137 L (140-148) mmol/L Potassium 4.2 (3.6-5.2) mmol/L Chloride 109 H (100-108) mmol/L Carbon Dioxide 20 L (21-32) mmol/L Anion Gap 12.2 (5.0-14.0) mmol/L BUN 14 (7-18) mg/dL Creatinine 0.8 (0.6-1.0) mg/dL Est Cr Clr Drug Dosing 47.26 mL/min Estimated GFR (MDRD) > 60 (>60) Glucose 133 H (74-106) mg/dL Calcium 8.1 L (8.5-10.1) mg/dL Total Bilirubin 2.0 H (0.2-1.0) mg/dL AST 79 H (15-37) U/L ALT 77 (12-78) U/L Alkaline Phosphatase 160 H (46-116) U/L Total Protein 5.8 L (6.4-8.2) g/dL Albumin 1.5 L (3.4-5.0) g/dL Globulin 4.3 H (2.3-3.5) g/dL Albumin/Globulin Ratio 0.4 L (1.2-2.2) TU Ref Lab Negative (.) Med Orders - Current: Current Medications Dexamethasone (Dexamethasone 4 Mg/Ml Sdv) 4 mg IVPUSH Q12H [facility] Last Admin: 06/02/21 05:40 Dose: 4 mg Documented by: Duloxetine HCl (Duloxetine 30 Mg Cap) 30 mg PO DAILY [facility] Last Admin: 06/02/21 08:44 Dose: 30 mg Documented by: Enoxaparin Sodium (Enoxaparin 40 Mg/0.4 Ml Syringe) 40 mg SUBCUT Q24H [facility] Last Admin: 06/01/21 13:21 Dose: 40 mg Documented by: Gabapentin (Gabapentin 100 Mg Cap) 100 mg PO BID [facility] Last Admin: 06/02/21 08:44 Dose: 100 mg Documented by: Hydromorphone HCl (Hydromorphone 0.5 Mg/0.5 Ml Syringe) 0.5 mg IVPUSH Q3H PRN PRN Reason: Pain (severe 7-10) Last Admin: 06/01/21 16:07 Dose: 0.5 mg Documented by: Ondansetron HCl (Ondansetron 4 Mg/2 Ml Sdv) 4 mg IV Q4H PRN PRN Reason: Nausea/Vomiting Oxycodone HCl (Oxycodone 5 Mg Tab) 5 mg PO Q4H PRN PRN Reason: Pain (moderate 4-6) Last Admin: 06/02/21 05:02 Dose: 5 mg Documented by: Polyethylene Glycol (Polyethylene Glycol 3350 Powder 17 Gm Packet) 17 gm PO DAILY PRN PRN Reason: Constipation Discontinued Medications Furosemide (Furosemide 20 Mg/2 Ml Vial) 20 mg IVPUSH NOW ONE Stop: 06/01/21 17:31 Furosemide (Furosemide 20 Mg/2 Ml Vial) 20 mg IVPUSH NOW ONE Stop: 06/02/21 09:01 Last Admin: 06/02/21 10:11 Dose: 20 mg Documented by: Sodium Chloride (Normal Saline) 80 mls @ 3 mls/sec IV ASDIRECTED [facility] Stop: 05/30/21 16:31 Last Admin: 05/30/21 16:44 Dose: 3 mls/sec Documented by: Sodium Chloride (Normal Saline) 1,000 mls @ 100 mls/hr IV ASDIRECTED [facility] Last Admin: 05/30/21 18:11 Dose: 100 mls/hr Documented by: Iopamidol (Iopamidol 612 Mg/Ml 100 Ml Bottle) 100 ml IV . DIRECTED [facility] Stop: 05/30/21 16:31 Last Admin: 05/30/21 16:44 Dose: 100 ml Documented by: Lorazepam (Lorazepam 0.5 Mg Tab) 0.5 mg PO ONETIME ONE Stop: 05/31/21 10:01 Last Admin: 05/31/21 11:05 Dose: 0.5 mg Documented by: Potassium Chloride (Potassium Chloride 20 Meq Tab.Er) 40 meq PO ONETIME ONE Stop: 05/30/21 17:10 Last Admin: 05/30/21 18:03 Dose: 40 meq Documented by: Tramadol HCl (Tramadol 50 Mg Tab) 50 mg PO Q4H PRN PRN Reason: Pain Last Admin: 05/30/21 14:37 Dose: 50 mg Documented by: - Exam Quality Assessment: DVT Prophylaxis General: Oriented, Cooperative, Moderate Distress, Lethargic Lungs: Clear to Auscultation, Normal Respiratory Effort, Decreased Breath Sounds Cardiovascular: Regular Rate, Regular Rhythm, No Murmurs GI/Abdominal Exam: Soft, Non-Tender, No Organomegaly, No Distention Back Exam: Vertebral Tenderness Extremities: Leg Pain - Patient Data Lab Results Last 24 hrs: Laboratory Results - last 24 hr 05/30/21 06/02/21 Range/Units 13:30 04:36 Sodium 137 L (140-148) mmol/L Potassium 4.2 (3.6-5.2) mmol/L Chloride 109 H (100-108) mmol/L Carbon Dioxide 20 L (21-32) mmol/L Anion Gap 12.2 (5.0-14.0) mmol/L BUN 14 (7-18) mg/dL Creatinine 0.8 (0.6-1.0) mg/dL Est Cr Clr Drug Dosing 47.26 mL/min Estimated GFR (MDRD) > 60 (>60) Glucose 133 H (74-106) mg/dL Calcium 8.1 L (8.5-10.1) mg/dL Total Bilirubin 2.0 H (0.2-1.0) mg/dL AST 79 H (15-37) U/L ALT 77 (12-78) U/L Alkaline Phosphatase 160 H (46-116) U/L Total Protein 5.8 L (6.4-8.2) g/dL Albumin 1.5 L (3.4-5.0) g/dL Globulin 4.3 H (2.3-3.5) g/dL Albumin/Globulin Ratio 0.4 L (1.2-2.2) TU Ref Lab Negative (.) Result Diagrams: 05/31/21 05:41 06/02/21 04:36 Sepsis Event Note - Evaluation Sepsis Screening Result: No Definite Risk - Focused Exam Vital Signs: Vital Signs Temp Pulse Resp BP Pulse Ox 06/02/21 10:54 97.1 F 80 18 135/54 L 90 L 06/02/21 07:56 96.3 F L 79 20 142/59 H 89 L 06/02/21 02:44 96.4 F L 88 18 134/66 93 L - Problem List Review Problem List Initiated/Reviewed/Updated: Yes - My Orders Last 24 Hours: My Active Orders 06/01/21 18:00 DULoxetine [Cymbalta] 30 mg PO DAILY dexAMETHasone [Decadron] 4 mg IVPUSH Q12H 06/01/21 21:00 Gabapentin [Neurontin] 100 mg PO BID 06/03/21 05:00 COMPREHENSIVE METABOLIC PN,CMP [CHEM] Timed - Plan Plan:: ASSESSMENT AND PLAN LOW BACK AND LEFT LEG PAIN-associated with left leg weakness over the past week. She has had pain for some time but it has been significantly worse to the point that she is unable to ambulate. CT scan of the head showed no acute abno rmalities. CT scan of the lumbar spine shows evidence of severe spinal stenosis. Symptoms modestly improved over the past few days -Decadron 4 mg IV every 12 hours -Gabapentin 100 mg p.o. twice daily -Cymbalta 30 mg p.o. daily -Pain medication as needed -Physical therapy consult HEPATIC CIRRHOSIS-underlying etiology not apparent, she strongly denies alcohol use. -Reference labs are pending -Outpatient follow-up with gastroenterology GENERALIZED WEAKNESS-likely secondary to low back pain and left leg weakness MAINTENANCE ISSUES -DVT prophylaxis; Lovenox 40 mg subcu daily -GI prophylaxis; not indicated -Uribe catheter; not indicated -Nutrition; regular diet -Nicotine dependence; not required CODE STATUS-FULL CODE ADMISSION STATUS-this patient will be admitted to observation status, expect no more than a one night hospital stay for evaluation and management of problems as outlined above. DISPOSITION-anticipate discharge to [facility] or assisted living PRIMARY CARE PROVIDER-she currently does not have a primary care provider
[2021-06-02] MEDS: Enoxaparin 40 MG/0.4 ML Syringe SUBCUT SCH (14:52)
[2021-06-03] MEDS: oxyCODONE 5 MG Tab PO PRN ×2 (04:43→20:45)
[2021-06-03] MEDS: Dexamethasone 4 MG/ML SDV IVPUSH SCH ×2 (05:05→17:00)
[2021-06-03] MEDS: Gabapentin 100 MG Cap PO SCH ×2 (08:54→20:48)
[2021-06-03] MEDS: DULoxetine 30 MG Cap PO SCH (08:54)
[2021-06-03] MEDS: Polyethylene Glycol 3350 Powder 17 GM Packet PO PRN (08:57)
[2021-06-03] MEDS: Enoxaparin 40 MG/0.4 ML Syringe SUBCUT SCH (13:24)
--- NOTE | 2021-06-03 13:26 | PCM.PN ---
- General Info Date of Service: 06/03/21 Subjective Update: Ms. Ndiaye has remained stable since yesterday. She has been more alert and interactive, slowly regaining some strength. Liver tests have been stable over the past few days and improved from admission. Back pain is under better control with current management. Functional Status: Reports: Urinating - Review of Systems General: Reports: Weakness, Fatigue. Denies: Fever, Chills Pulmonary: Reports: No Symptoms Cardiovascular: Reports: No Symptoms Gastrointestinal: Reports: No Symptoms Genitourinary: Reports: No Symptoms Musculoskeletal: Reports: Back Pain, Leg Pain - Patient Data Vitals - Most Recent: Last Vital Signs Temp 96.8 F L 06/03/21 11:00 Pulse 68 06/03/21 11:00 Resp 17 06/03/21 11:00 BP 152/62 H 06/03/21 11:00 Pulse Ox 93 L 06/03/21 11:00 Weight - Most Recent: 155 lb 3.287 oz I&O - Last 24 Hours: Intake & Output 06/02/21 06/03/21 06/03/21 22:59 06:59 14:59 Intake Total 500 500 Balance 500 500 Lab Results Last 24 Hours: Laboratory Results - last 24 hr 05/31/21 05/31/21 06/03/21 Range/Units 05:41 05:41 05:45 Sodium 137 L (140-148) mmol/L Potassium 3.7 (3.6-5.2) mmol/L Chloride 109 H (100-108) mmol/L Carbon Dioxide 21 (21-32) mmol/L Anion Gap 10.7 (5.0-14.0) mmol/L BUN 19 H (7-18) mg/dL Creatinine 0.8 (0.6-1.0) mg/dL Est Cr Clr Drug Dosing 47.26 mL/min Estimated GFR (MDRD) > 60 (>60) Glucose 117 H (74-106) mg/dL Calcium 8.2 L (8.5-10.1) mg/dL Total Bilirubin 1.9 H (0.2-1.0) mg/dL AST 77 H (15-37) U/L ALT 71 (12-78) U/L Alkaline Phosphatase 155 H (46-116) U/L Total Protein 5.8 L (6.4-8.2) g/dL Albumin 1.6 L (3.4-5.0) g/dL Globulin 4.2 H (2.3-3.5) g/dL Albumin/Globulin Ratio 0.4 L (1.2-2.2) Anti-Mitochondrial Ab 173.7 H (0.0-20.0) Units Anti-Smooth Muscle Ab 80 H (0-19) Units Med Orders - Current: Current Medications Dexamethasone (Dexamethasone 4 Mg/Ml Sdv) 4 mg IVPUSH Q12H [facility] Last Admin: 06/03/21 05:05 Dose: 4 mg Documented by: Duloxetine HCl (Duloxetine 30 Mg Cap) 30 mg PO DAILY [facility] Last Admin: 06/03/21 08:54 Dose: 30 mg Documented by: Enoxaparin Sodium (Enoxaparin 40 Mg/0.4 Ml Syringe) 40 mg SUBCUT Q24H [facility] Last Admin: 06/02/21 14:52 Dose: 40 mg Documented by: Gabapentin (Gabapentin 100 Mg Cap) 100 mg PO BID [facility] Last Admin: 06/03/21 08:54 Dose: 100 mg Documented by: Ondansetron HCl (Ondansetron 4 Mg/2 Ml Sdv) 4 mg IV Q4H PRN PRN Reason: Nausea/Vomiting Oxycodone HCl (Oxycodone 5 Mg Tab) 5 mg PO Q4H PRN PRN Reason: Pain (moderate 4-6) Last Admin: 06/03/21 04:43 Dose: 5 mg Documented by: Polyethylene Glycol (Polyethylene Glycol 3350 Powder 17 Gm Packet) 17 gm PO DAILY PRN PRN Reason: Constipation Last Admin: 06/03/21 08:57 Dose: 17 gm Documented by: Discontinued Medications Furosemide (Furosemide 20 Mg/2 Ml Vial) 20 mg IVPUSH NOW ONE Stop: 06/01/21 17:31 Furosemide (Furosemide 20 Mg/2 Ml Vial) 20 mg IVPUSH NOW ONE Stop: 06/02/21 09:01 Last Admin: 06/02/21 10:11 Dose: 20 mg Documented by: Hydromorphone HCl (Hydromorphone 0.5 Mg/0.5 Ml Syringe) 0.5 mg IVPUSH Q3H PRN PRN Reason: Pain (severe 7-10) Last Admin: 06/01/21 16:07 Dose: 0.5 mg Documented by: Sodium Chloride (Normal Saline) 80 mls @ 3 mls/sec IV ASDIRECTED [facility] Stop: 05/30/21 16:31 Last Admin: 05/30/21 16:44 Dose: 3 mls/sec Documented by: Sodium Chloride (Normal Saline) 1,000 mls @ 100 mls/hr IV ASDIRECTED [facility] Last Admin: 05/30/21 18:11 Dose: 100 mls/hr Documented by: Iopamidol (Iopamidol 612 Mg/Ml 100 Ml Bottle) 100 ml IV . DIRECTED [facility] Stop: 05/30/21 16:31 Last Admin: 05/30/21 16:44 Dose: 100 ml Documented by: Lorazepam (Lorazepam 0.5 Mg Tab) 0.5 mg PO ONETIME ONE Stop: 05/31/21 10:01 Last Admin: 05/31/21 11:05 Dose: 0.5 mg Documented by: Potassium Chloride (Potassium Chloride 20 Meq Tab.Er) 40 meq PO ONETIME ONE Stop: 05/30/21 17:10 Last Admin: 05/30/21 18:03 Dose: 40 meq Documented by: Tramadol HCl (Tramadol 50 Mg Tab) 50 mg PO Q4H PRN PRN Reason: Pain Last Admin: 05/30/21 14:37 Dose: 50 mg Documented by: - Exam Quality Assessment: DVT Prophylaxis General: Oriented, Cooperative, Mild Distress, Lethargic Lungs: Clear to Auscultation, Normal Respiratory Effort, Decreased Breath Sounds Cardiovascular: Regular Rate, Regular Rhythm, No Murmurs GI/Abdominal Exam: Soft, Non-Tender, No Organomegaly, No Distention Back Exam: Vertebral Tenderness - Patient Data Lab Results Last 24 hrs: Laboratory Results - last 24 hr 05/31/21 05/31/21 06/03/21 Range/Units 05:41 05:41 05:45 Sodium 137 L (140-148) mmol/L Potassium 3.7 (3.6-5.2) mmol/L Chloride 109 H (100-108) mmol/L Carbon Dioxide 21 (21-32) mmol/L Anion Gap 10.7 (5.0-14.0) mmol/L BUN 19 H (7-18) mg/dL Creatinine 0.8 (0.6-1.0) mg/dL Est Cr Clr Drug Dosing 47.26 mL/min Estimated GFR (MDRD) > 60 (>60) Glucose 117 H (74-106) mg/dL Calcium 8.2 L (8.5-10.1) mg/dL Total Bilirubin 1.9 H (0.2-1.0) mg/dL AST 77 H (15-37) U/L ALT 71 (12-78) U/L Alkaline Phosphatase 155 H (46-116) U/L Total Protein 5.8 L (6.4-8.2) g/dL Albumin 1.6 L (3.4-5.0) g/dL Globulin 4.2 H (2.3-3.5) g/dL Albumin/Globulin Ratio 0.4 L (1.2-2.2) Anti-Mitochondrial Ab 173.7 H (0.0-20.0) Units Anti-Smooth Muscle Ab 80 H (0-19) Units Result Diagrams: 05/31/21 05:41 06/03/21 05:45 Sepsis Event Note - Evaluation Sepsis Screening Result: No Definite Risk - Focused Exam Vital Signs: Vital Signs Temp Pulse Resp BP Pulse Ox 06/03/21 11:00 96.8 F L 68 17 152/62 H 93 L 06/03/21 07:00 96.0 F L 71 17 158/70 H 90 L 06/03/21 02:47 97.3 F 73 18 122/52 L 95 - Problem List Review Problem List Initiated/Reviewed/Updated: Yes - My Orders Last 24 Hours: My Active Orders 06/03/21 12:14 Patient Status [ADT] Routine - Plan Plan:: ASSESSMENT AND PLAN LOW BACK AND LEFT LEG PAIN-associated with left leg weakness over the past week. She has had pain for some time but it has been significantly worse to the po int that she is unable to ambulate. CT scan of the head showed no acute abnormalities. CT scan of the lumbar spine shows evidence of severe spinal stenosis. Symptoms modestly improved over the past few days with current management. -Decadron 4 mg IV every 12 hours -Gabapentin 100 mg p.o. twice daily -Cymbalta 30 mg p.o. 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 DISPOSITION-anticipate discharge to [facility] or assisted living PRIMARY CARE PROVIDER-she currently does not have a primary care provider
[2021-06-04] MEDS: oxyCODONE 5 MG Tab PO PRN ×2 (01:04→12:14)
[2021-06-04] MEDS: Dexamethasone 4 MG/ML SDV IVPUSH SCH ×2 (06:13→17:07)
[2021-06-04] MEDS: Gabapentin 100 MG Cap PO SCH ×2 (08:27→21:37)
[2021-06-04] MEDS: DULoxetine 30 MG Cap PO SCH (08:27)
[2021-06-04] MEDS ORDERED: Bisacodyl 10 MG Supp RECTAL ONE (11:35)
--- NOTE | 2021-06-04 11:39 | PCM.PN ---
- General Info Date of Service: 06/04/21 Subjective Update: Ms. Ndiaye reports improved pain control of low back and left leg pain. She continues to experience left leg weakness, likely related to nerve root impingement. Appetite and strength are slowly improving. Functional Status: Reports: Tolerating Diet, Urinating - Review of Systems General: Reports: Weakness, Fatigue. Denies: Fever, Chills Pulmonary: Reports: No Symptoms Cardiovascular: Reports: No Symptoms Gastrointestinal: Reports: No Symptoms Musculoskeletal: Reports: Back Pain, Leg Pain - Patient Data Vitals - Most Recent: Last Vital Signs Temp 97.4 F 06/04/21 10:02 Pulse 67 06/04/21 10:02 Resp 18 06/04/21 10:02 BP 148/69 H 06/04/21 10:02 Pulse Ox 94 L 06/04/21 10:02 Weight - Most Recent: 154 lb 5.177 oz I&O - Last 24 Hours: Intake & Output 06/03/21 06/04/21 06/04/21 22:59 06:59 14:59 Intake Total 240 Balance 240 Med Orders - Current: Current Medications Bisacodyl (Bisacodyl 10 Mg Supp) 10 mg RECTAL ONETIME ONE Stop: 06/04/21 11:36 Dexamethasone (Dexamethasone 4 Mg/Ml Sdv) 4 mg IVPUSH Q12H [facility] Last Admin: 06/04/21 06:13 Dose: 4 mg Documented by: Duloxetine HCl (Duloxetine 30 Mg Cap) 30 mg PO DAILY [facility] Last Admin: 06/04/21 08:27 Dose: 30 mg Documented by: Enoxaparin Sodium (Enoxaparin 40 Mg/0.4 Ml Syringe) 40 mg SUBCUT Q24H [facility] Last Admin: 06/03/21 13:24 Dose: 40 mg Documented by: Gabapentin (Gabapentin 100 Mg Cap) 100 mg PO BID [facility] Last Admin: 06/04/21 08:27 Dose: 100 mg Documented by: Ondansetron HCl (Ondansetron 4 Mg/2 Ml Sdv) 4 mg IV Q4H PRN PRN Reason: Nausea/Vomiting Oxycodone HCl (Oxycodone 5 Mg Tab) 5 mg PO Q4H PRN PRN Reason: Pain (moderate 4-6) Last Admin: 06/04/21 01:04 Dose: 5 mg Documented by: Polyethylene Glycol (Polyethylene Glycol 3350 Powder 17 Gm Packet) 17 gm PO DAILY PRN PRN Reason: Constipation Last Admin: 06/03/21 08:57 Dose: 17 gm Documented by: Discontinued Medications Furosemide (Furosemide 20 Mg/2 Ml Vial) 20 mg IVPUSH NOW ONE Stop: 06/01/21 17:31 Furosemide (Furosemide 20 Mg/2 Ml Vial) 20 mg IVPUSH NOW ONE Stop: 06/02/21 09:01 Last Admin: 06/02/21 10:11 Dose: 20 mg Documented by: Hydromorphone HCl (Hydromorphone 0.5 Mg/0.5 Ml Syringe) 0.5 mg IVPUSH Q3H PRN PRN Reason: Pain (severe 7-10) Last Admin: 06/01/21 16:07 Dose: 0.5 mg Documented by: Sodium Chloride (Normal Saline) 80 mls @ 3 mls/sec IV ASDIRECTED [facility] Stop: 05/30/21 16:31 Last Admin: 05/30/21 16:44 Dose: 3 mls/sec Documented by: Sodium Chloride (Normal Saline) 1,000 mls @ 100 mls/hr IV ASDIRECTED [facility] Last Admin: 05/30/21 18:11 Dose: 100 mls/hr Documented by: Iopamidol (Iopamidol 612 Mg/Ml 100 Ml Bottle) 100 ml IV . DIRECTED [facility] Stop: 05/30/21 16:31 Last Admin: 05/30/21 16:44 Dose: 100 ml Documented by: Lorazepam (Lorazepam 0.5 Mg Tab) 0.5 mg PO ONETIME ONE Stop: 05/31/21 10:01 Last Admin: 05/31/21 11:05 Dose: 0.5 mg Documented by: Potassium Chloride (Potassium Chloride 20 Meq Tab.Er) 40 meq PO ONETIME ONE Stop: 05/30/21 17:10 Last Admin: 05/30/21 18:03 Dose: 40 meq Documented by: Tramadol HCl (Tramadol 50 Mg Tab) 50 mg PO Q4H PRN PRN Reason: Pain Last Admin: 05/30/21 14:37 Dose: 50 mg Documented by: - Exam Quality Assessment: Supplemental Oxygen, DVT Prophylaxis General: Alert, Oriented, Cooperative, Mild Distress Lungs: Clear to Auscultation, Normal Respiratory Effort, Decreased Breath Sounds Cardiovascular: Regular Rate, Regular Rhythm, No Murmurs GI/Abdominal Exam: Soft, Non-Tender, No Organomegaly, No Distention Back Exam: Vertebral Tenderness Neurological: Other (Persistent left leg weakness) - Patient Data Result Diagrams: 05/31/21 05:41 06/03/21 05:45 Sepsis Event Note - Evaluation Sepsis Screening Result: No Definite Risk - Focused Exam Vital Signs: Vital Signs Temp Temp Pulse Resp BP Pulse Ox 06/04/21 10:02 97.4 F 67 18 148/69 H 94 L 06/04/21 07:53 97.3 F 80 16 164/57 H 88 L 06/04/21 04:11 97.7 F 66 16 151/56 H 90 L - Problem List Review Problem List Initiated/Reviewed/Updated: Yes - My Orders Last 24 Hours: My Active Orders 06/03/21 12:14 Patient Status [ADT] Routine 06/04/21 11:35 bisacodyL [Dulcolax] 10 mg RECTAL ONETIME ONE - Plan Plan:: ASSESSMENT AND PLAN LOW BACK AND LEFT LEG PAIN-associated with left leg weakness. She has had pain for some time but it has been significantly worse to the point that she is unable to ambulate. CT scan of the head showed no acute abnormalities. CT scan of the lumbar spine shows evidence of severe spinal stenosis. Symptoms modestly improved over the past few days with current management. -Decadron 4 mg IV every 12 hours, today is day 3 -Gabapentin 100 mg p.o. twice daily -Cymbalta 30 mg p.o. 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 -Outpatient follow-up with gastroenterology GENERALIZED WEAKNESS-likely secondary to low back pain and left leg weakness -Daily physical therapy COPD-longstanding smoking history -Currently requiring 1 L of oxygen via nasal cannula, especially at night MAINTENANCE ISSUES -DVT prophylaxis; Lovenox 40 mg subcu daily -GI prophylaxis; not indicated -Uribe catheter; not indicated -Nutrition; regular diet -Nicotine dependence; not required CODE STATUS-FULL CODE ADMISSION STATUS-this patient will be admitted to observation status, expect no more than a one night hospital stay for evaluation and management of problems as outlined above. DISPOSITION-anticipate discharge to retirement or assisted living PRIMARY CARE PROVIDER-she currently does not have a primary care provider
[2021-06-04] MEDS: Enoxaparin 40 MG/0.4 ML Syringe SUBCUT SCH (14:04)
[2021-06-05] MEDS: oxyCODONE 5 MG Tab PO PRN ×3 (02:35→19:19)
[2021-06-05] MEDS: Dexamethasone 4 MG/ML SDV IVPUSH SCH ×2 (05:39→17:23)
[2021-06-05] MEDS: DULoxetine 30 MG Cap PO SCH (08:16)
[2021-06-05] MEDS: Gabapentin 100 MG Cap PO SCH ×2 (08:16→21:51)
[2021-06-05] MEDS: Enoxaparin 40 MG/0.4 ML Syringe SUBCUT SCH (13:36)
--- NOTE | 2021-06-05 14:19 | PCM.PN ---
- General Info Date of Service: 06/05/21 Subjective Update: No acute events overnight. Patient continues to be weak and fatigued. She does not have much of an appetite. She continues to have significant pain especially in the left buttocks area. No complaints of abdominal pain or nausea. She has not had any fevers. Bilirubin continues a slow trend down. They continue to need a Lashawn lift for transfers due to her severe weakness. I did talk to the cinder block maker at [facility] in [place] today about the suspected primary biliary cirrhosis. They did recommend a trial of ursodeoxycholic acid. The pharmacy will be ordering this for tomorrow. Functional Status: Reports: Pain Controlled, Tolerating Diet - Review of Systems Gastrointestinal: Denies: Abdominal Pain Musculoskeletal: Reports: Joint Pain (left hip ) - Patient Data Vitals - Most Recent: Last Vital Signs Temp 36.0 C L 06/05/21 10:47 Pulse 63 06/05/21 10:47 Resp 18 06/05/21 10:47 BP 138/56 L 06/05/21 10:47 Pulse Ox 93 L 06/05/21 10:47 Weight - Most Recent: 69.6 kg I&O - Last 24 Hours: Intake & Output 06/04/21 06/05/21 06/05/21 22:59 06:59 14:59 Intake Total 450 Balance 450 Med Orders - Current: Current Medications Dexamethasone (Dexamethasone 4 Mg/Ml Sdv) 4 mg IVPUSH Q12H [facility] Last Admin: 06/05/21 05:39 Dose: 4 mg Documented by: Duloxetine HCl (Duloxetine 30 Mg Cap) 30 mg PO DAILY [facility] Last Admin: 06/05/21 08:16 Dose: 30 mg Documented by: Enoxaparin Sodium (Enoxaparin 40 Mg/0.4 Ml Syringe) 40 mg SUBCUT Q24H [facility] Last Admin: 06/05/21 13:36 Dose: 40 mg Documented by: Gabapentin (Gabapentin 100 Mg Cap) 100 mg PO BID [facility] Last Admin: 06/05/21 08:16 Dose: 100 mg Documented by: Ondansetron HCl (Ondansetron 4 Mg/2 Ml Sdv) 4 mg IV Q4H PRN PRN Reason: Nausea/Vomiting Oxycodone HCl (Oxycodone 5 Mg Tab) 5 mg PO Q4H PRN PRN Reason: Pain (moderate 4-6) Last Admin: 06/05/21 08:15 Dose: 5 mg Documented by: Polyethylene Glycol (Polyethylene Glycol 3350 Powder 17 Gm Packet) 17 gm PO DAILY PRN PRN Reason: Constipation Last Admin: 06/03/21 08:57 Dose: 17 gm Documented by: Discontinued Medications Bisacodyl (Bisacodyl 10 Mg Supp) 10 mg RECTAL ONETIME ONE Stop: 06/04/21 11:36 Last Admin: 06/04/21 12:15 Dose: 10 mg Documented by: Furosemide (Furosemide 20 Mg/2 Ml Vial) 20 mg IVPUSH NOW ONE Stop: 06/01/21 17:31 Furosemide (Furosemide 20 Mg/2 Ml Vial) 20 mg IVPUSH NOW ONE Stop: 06/02/21 09:01 Last Admin: 06/02/21 10:11 Dose: 20 mg Documented by: Hydromorphone HCl (Hydromorphone 0.5 Mg/0.5 Ml Syringe) 0.5 mg IVPUSH Q3H PRN PRN Reason: Pain (severe 7-10) Last Admin: 06/01/21 16:07 Dose: 0.5 mg Documented by: Sodium Chloride (Normal Saline) 80 mls @ 3 mls/sec IV ASDIRECTED [facility] Stop: 05/30/21 16:31 Last Admin: 05/30/21 16:44 Dose: 3 mls/sec Documented by: Sodium Chloride (Normal Saline) 1,000 mls @ 100 mls/hr IV ASDIRECTED [facility] Last Admin: 05/30/21 18:11 Dose: 100 mls/hr Documented by: Iopamidol (Iopamidol 612 Mg/Ml 100 Ml Bottle) 100 ml IV . DIRECTED [facility] Stop: 05/30/21 16:31 Last Admin: 05/30/21 16:44 Dose: 100 ml Documented by: Lorazepam (Lorazepam 0.5 Mg Tab) 0.5 mg PO ONETIME ONE Stop: 05/31/21 10:01 Last Admin: 05/31/21 11:05 Dose: 0.5 mg Documented by: Potassium Chloride (Potassium Chloride 20 Meq Tab.Er) 40 meq PO ONETIME ONE Stop: 05/30/21 17:10 Last Admin: 05/30/21 18:03 Dose: 40 meq Documented by: Tramadol HCl (Tramadol 50 Mg Tab) 50 mg PO Q4H PRN PRN Reason: Pain Last Admin: 05/30/21 14:37 Dose: 50 mg Documented by: - Exam Quality Assessment: No: Supplemental Oxygen General: Alert, Oriented, Cooperative, No Acute Distress Lungs: Normal Respiratory Effort. No: Wheezing GI/Abdominal Exam: Soft, Distended Extremities: No Pedal Edema. No: Increased Warmth Skin: Warm, Dry Psy/Mental Status: Alert, Normal Affect - Patient Data Result Diagrams: 05/31/21 05:41 06/03/21 05:45 Sepsis Event Note - Evaluation Sepsis Screening Result: No Definite Risk - Focused Exam Vital Signs: Vital Signs Temp Pulse Resp BP BP Pulse Ox 06/05/21 10:47 36.0 C L 63 18 138/56 L 93 L 06/05/21 08:13 36.0 C L 58 L 16 147/53 H 90 L 06/05/21 02:19 35.9 C L 63 16 166/45 H 92 L - Problem List Review Problem List Initiated/Reviewed/Updated: Yes - My Orders Last 24 Hours: My Active Orders 06/05/21 14:18 OT Evaluation and Treatment [CONS] Routine - Plan Plan:: ASSESSMENT AND PLAN - SEVERE LUMBAR SPINAL STENOSIS-contributing to lower back and radicular pain. Mildly improved since admission. She is extremely weak and deconditioned. Currently requiring a Lashawn lift for transfers. -Epidural steroid injections contraindicated with coagulopathy -Decadron 4 mg IV every 12 hours, today is day 4 -Gabapentin 100 mg p.o. twice daily, consider titrating tomorrow -Cymbalta 30 mg p.o. 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 Case discussed with gastroenterology at [facility]. They are suspicious of PBC as well. They did recommend a trial of ursodeoxycholic acid and outpatient follow-up. -Start ursodeoxycholic acid 300 mg 3 times daily tomorrow when available -Outpatient follow-up with gastroenterology GENERALIZED WEAKNESS-likely secondary to low back pain and left leg weakness with contribution from PBC. -Daily physical therapy COPD-longstanding smoking history. -Currently requiring 1 L of oxygen via nasal cannula, especially at night -Encourage cessation MAINTENANCE ISSUES -DVT prophylaxis; enoxaparin -GI prophylaxis; not indicated -Uribe catheter; not indicated -Nutrition; regular diet DISPOSITION-anticipate discharge to custodial for subacute rehab or possibly assisted living Nikita Story MD
[2021-06-06] MEDS: oxyCODONE 5 MG Tab PO PRN (05:08)
[2021-06-06] MEDS ORDERED: Dexamethasone 2 MG Tab PO SCH (07:30)
[2021-06-06] MEDS: Polyethylene Glycol 3350 Powder 17 GM Packet PO PRN (07:39)
[2021-06-06] MEDS: DULoxetine 30 MG Cap PO SCH (08:28)
[2021-06-06] MEDS: Dexamethasone 2 MG Tab PO SCH ×2 (08:28→16:47)
[2021-06-06] MEDS: Gabapentin 100 MG Cap PO SCH ×2 (08:28→21:08)
[2021-06-06] MEDS: Ursodiol 300 MG Cap PO SCH ×2 (13:19→21:08)
[2021-06-06] MEDS: Enoxaparin 40 MG/0.4 ML Syringe SUBCUT SCH (13:19)
--- NOTE | 2021-06-06 16:00 | PCM.PN ---
- General Info Date of Service: 06/06/21 Subjective Update: No acute events overnight. Pain control has been fairly decent. She slept much of the day yesterday and then had trouble sleeping last night. Pain control has been less optimal at night. She has not required much in the way of pain medication so far today. Most of her pain is still in the lower back and left hip area. No abdominal pain. We have received the ursodeoxycholic acid and will be starting that this afternoon. - Patient Data Vitals - Most Recent: Last Vital Signs Temp 35.7 C L 06/06/21 14:56 Pulse 64 06/06/21 14:56 Resp 18 06/06/21 14:56 BP 157/70 H 06/06/21 14:56 Pulse Ox 95 06/06/21 14:56 Weight - Most Recent: 70.2 kg I&O - Last 24 Hours: Intake & Output 06/06/21 06/06/21 06/06/21 06:59 14:59 22:59 Intake Total 540 Balance 540 Med Orders - Current: Current Medications Dexamethasone (Dexamethasone 2 Mg Tab) 2 mg PO BIDMEALS [facility] Last Admin: 06/06/21 08:28 Dose: 2 mg Documented by: Duloxetine HCl (Duloxetine 30 Mg Cap) 30 mg PO DAILY [facility] Last Admin: 06/06/21 08:28 Dose: 30 mg Documented by: Enoxaparin Sodium (Enoxaparin 40 Mg/0.4 Ml Syringe) 40 mg SUBCUT Q24H [facility] Last Admin: 06/06/21 13:19 Dose: 40 mg Documented by: Gabapentin (Gabapentin 100 Mg Cap) 100 mg PO BID [facility] Last Admin: 06/06/21 08:28 Dose: 100 mg Documented by: Morphine Sulfate (Morphine 15 Mg Tab) 15 mg PO Q4H PRN PRN Reason: Pain Ondansetron HCl (Ondansetron 4 Mg/2 Ml Sdv) 4 mg IV Q4H PRN PRN Reason: Nausea/Vomiting Polyethylene Glycol (Polyethylene Glycol 3350 Powder 17 Gm Packet) 17 gm PO DAILY PRN PRN Reason: Constipation Last Admin: 06/06/21 07:39 Dose: 17 gm Documented by: Ursodiol (Ursodiol 300 Mg Cap) 300 mg PO TID [facility] Last Admin: 06/06/21 13:19 Dose: 300 mg Documented by: Discontinued Medications Bisacodyl (Bisacodyl 10 Mg Supp) 10 mg RECTAL ONETIME ONE Stop: 06/04/21 11:36 Last Admin: 06/04/21 12:15 Dose: 10 mg Documented by: Dexamethasone (Dexamethasone 4 Mg/Ml Sdv) 4 mg IVPUSH Q12H [facility] Last Admin: 06/05/21 17:23 Dose: 4 mg Documented by: Furosemide (Furosemide 20 Mg/2 Ml Vial) 20 mg IVPUSH NOW ONE Stop: 06/01/21 17:31 Furosemide (Furosemide 20 Mg/2 Ml Vial) 20 mg IVPUSH NOW ONE Stop: 06/02/21 09:01 Last Admin: 06/02/21 10:11 Dose: 20 mg Documented by: Hydromorphone HCl (Hydromorphone 0.5 Mg/0.5 Ml Syringe) 0.5 mg IVPUSH Q3H PRN PRN Reason: Pain (severe 7-10) Last Admin: 06/01/21 16:07 Dose: 0.5 mg Documented by: Sodium Chloride (Normal Saline) 80 mls @ 3 mls/sec IV ASDIRECTED [facility] Stop: 05/30/21 16:31 Last Admin: 05/30/21 16:44 Dose: 3 mls/sec Documented by: Sodium Chloride (Normal Saline) 1,000 mls @ 100 mls/hr IV ASDIRECTED [facility] Last Admin: 05/30/21 18:11 Dose: 100 mls/hr Documented by: Iopamidol (Iopamidol 612 Mg/Ml 100 Ml Bottle) 100 ml IV . DIRECTED [facility] Stop: 05/30/21 16:31 Last Admin: 05/30/21 16:44 Dose: 100 ml Documented by: Lorazepam (Lorazepam 0.5 Mg Tab) 0.5 mg PO ONETIME ONE Stop: 05/31/21 10:01 Last Admin: 05/31/21 11:05 Dose: 0.5 mg Documented by: Oxycodone HCl (Oxycodone 5 Mg Tab) 5 mg PO Q4H PRN PRN Reason: Pain (moderate 4-6) Last Admin: 06/06/21 05:08 Dose: 5 mg Documented by: Potassium Chloride (Potassium Chloride 20 Meq Tab.Er) 40 meq PO ONETIME ONE Stop: 05/30/21 17:10 Last Admin: 05/30/21 18:03 Dose: 40 meq Documented by: Tramadol HCl (Tramadol 50 Mg Tab) 50 mg PO Q4H PRN PRN Reason: Pain Last Admin: 05/30/21 14:37 Dose: 50 mg Documented by: - Exam Quality Assessment: No: Supplemental Oxygen General: Alert, Oriented, Cooperative, No Acute Distress HEENT: Pupils Equal Lungs: Normal Respiratory Effort GI/Abdominal Exam: Soft, Distended Psy/Mental Status: Alert, Normal Affect - Patient Data Result Diagrams: 05/31/21 05:41 06/03/21 05:45 Sepsis Event Note - Evaluation Sepsis Screening Result: No Definite Risk - Focused Exam Vital Signs: Vital Signs Temp Pulse Resp BP Pulse Ox 06/06/21 14:56 35.7 C L 64 18 157/70 H 95 06/06/21 11:18 35.7 C L 63 18 158/57 H 96 06/06/21 06:59 36.5 C 68 18 138/57 L 93 L - Problem List Review Problem List Initiated/Reviewed/Updated: Yes - My Orders Last 24 Hours: My Active Orders 06/06/21 08:00 dexAMETHasone 2 mg PO BIDMEALS 06/06/21 14:00 ursodioL [Actigal] 300 mg PO TID 06/06/21 14:46 Morphine 15 mg PO Q4H PRN 06/06/21 Dinner Regular Diet [DIET] 06/07/21 05:00 CBC W/O DIFF,HEMOGRAM [HEME] Timed (1) COMPREHENSIVE METABOLIC PN,CMP [CHEM] Timed - Plan Plan:: ASSESSMENT AND PLAN - SEVERE LUMBAR SPINAL STENOSIS-contributing to lower back and radicular pain. Mildly improved since admission. She is extremely weak and deconditioned. Still requiring a Lashawn lift for transfers. Holding off on increasing gabapentin because of somnolence. Discussed transition to morphine so we can avoid hepatic metabolism. Patient and son were agreeable. -Epidural steroid injections contraindicated with coagulopathy -Decadron 2 mg twice daily with meals, today is day 5 -Gabapentin 100 mg p.o. twice daily -Cymbalta 30 mg p.o. daily -Pain medication as needed (changing the morphine today) -Physical therapy consult PRIMARY BILIARY CIRRHOSIS-cholestatic picture with hepatic panel labs and elevated antimitochondrial antibody. Case discussed with gastroenterology at [facility]. They are suspicious of PBC as well. They did recommend a trial of ursodeoxycholic acid and outpatient follow-up. -Start ursodeoxycholic acid 300 mg 3 times daily today -Outpatient follow-up with gastroenterology GENERALIZED WEAKNESS-likely secondary to low back pain and left leg weakness with contribution from PBC. -Daily physical therapy COPD-longstanding smoking history. -Currently requiring 1 L of oxygen via nasal cannula, especially at night TOBACCO DEPENDENCE- -Encourage cessation MAINTENANCE ISSUES -DVT prophylaxis; enoxaparin -GI prophylaxis; not indicated -Uribe catheter; not indicated -Nutrition; regular diet DISPOSITION-anticipate discharge to residential for subacute rehab or possibly assisted living Nikita Story MD
[2021-06-06] MEDS: Morphine 15 MG Tab PO PRN (21:09)
[2021-06-07] MEDS: Dexamethasone 2 MG Tab PO SCH ×2 (08:26→16:48)
[2021-06-07] MEDS: DULoxetine 30 MG Cap PO SCH (08:26)
[2021-06-07] MEDS: Ursodiol 300 MG Cap PO SCH ×3 (08:26→20:47)
[2021-06-07] MEDS: Gabapentin 100 MG Cap PO SCH ×2 (08:26→20:47)
[2021-06-07] MEDS: Morphine 15 MG Tab PO PRN ×2 (08:28→18:34)
[2021-06-07] MEDS ORDERED: Potassium Chloride 20 MEQ Tab.ER PO ONE (09:30)
[2021-06-07] MEDS: Enoxaparin 40 MG/0.4 ML Syringe SUBCUT SCH (14:36)
--- NOTE | 2021-06-07 14:57 | PCM.PN ---
- General Info Date of Service: 06/07/21 Subjective Update: No acute events overnight. No significant changes in the past 24 hours. Strength is maybe a little better and she is requiring slightly less assistance but remains very weak. She feels that her pain control is similar with the morphine as it was with the oxycodone. Still is a little bit lethargic after pain medications. No fevers. Her abdomen feels full and bloated. She has some edema. We did discuss starting diuretics and she was interested in trying low- dose diuretics to help with both edema and ascites. Functional Status: Reports: Pain Controlled, Tolerating Diet - Review of Systems General: Reports: Weakness - Patient Data Vitals - Most Recent: Last Vital Signs Temp 36.3 C 06/07/21 14:17 Pulse 63 06/07/21 14:17 Resp 16 06/07/21 14:17 BP 159/66 H 06/07/21 14:17 Pulse Ox 94 L 06/07/21 14:17 Weight - Most Recent: 69.9 kg I&O - Last 24 Hours: Intake & Output 06/06/21 06/07/21 06/07/21 22:59 06:59 14:59 Intake Total 200 500 600 Balance 200 500 600 Lab Results Last 24 Hours: Laboratory Results - last 24 hr 06/07/21 06/07/21 Range/Units 06:29 06:29 WBC 9.5 (4.5-11.0) K/uL RBC 3.93 (3.30-5.50) M/uL Hgb 13.4 D (12.0-15.0) g/dL Hct 39.6 (36.0-48.0) % MCV 101 H (80-98) fL MCH 34 H (27-31) pg MCHC 34 (32-36) % Plt Count 184 (150-400) K/uL Sodium 141 (140-148) mmol/L Potassium 3.5 L (3.6-5.2) mmol/L Chloride 111 H (100-108) mmol/L Carbon Dioxide 23 (21-32) mmol/L Anion Gap 10.5 (5.0-14.0) mmol/L BUN 18 (7-18) mg/dL Creatinine 0.8 (0.6-1.0) mg/dL Est Cr Clr Drug Dosing 47.26 mL/min Estimated GFR (MDRD) > 60 (>60) Glucose 93 (74-106) mg/dL Calcium 8.3 L (8.5-10.1) mg/dL Total Bilirubin 1.7 H (0.2-1.0) mg/dL AST 47 H (15-37) U/L ALT 59 (12-78) U/L Alkaline Phosphatase 156 H (46-116) U/L Total Protein 6.2 L (6.4-8.2) g/dL Albumin 1.9 L (3.4-5.0) g/dL Globulin 4.3 H (2.3-3.5) g/dL Albumin/Globulin Ratio 0.4 L (1.2-2.2) Med Orders - Current: Current Medications Dexamethasone (Dexamethasone 2 Mg Tab) 2 mg PO BIDMEALS [facility] Last Admin: 06/07/21 08:26 Dose: 2 mg Documented by: Duloxetine HCl (Duloxetine 30 Mg Cap) 30 mg PO DAILY [facility] Last Admin: 06/07/21 08:26 Dose: 30 mg Documented by: Enoxaparin Sodium (Enoxaparin 40 Mg/0.4 Ml Syringe) 40 mg SUBCUT Q24H [facility] Last Admin: 06/07/21 14:36 Dose: 40 mg Documented by: Gabapentin (Gabapentin 100 Mg Cap) 100 mg PO BID [facility] Last Admin: 06/07/21 08:26 Dose: 100 mg Documented by: Morphine Sulfate (Morphine 15 Mg Tab) 15 mg PO Q4H PRN PRN Reason: Pain Last Admin: 06/07/21 08:28 Dose: 15 mg Documented by: Ondansetron HCl (Ondansetron 4 Mg/2 Ml Sdv) 4 mg IV Q4H PRN PRN Reason: Nausea/Vomiting Polyethylene Glycol (Polyethylene Glycol 3350 Powder 17 Gm Packet) 17 gm PO DAILY PRN PRN Reason: Constipation Last Admin: 06/06/21 07:39 Dose: 17 gm Documented by: Ursodiol (Ursodiol 300 Mg Cap) 300 mg PO TID [facility] Last Admin: 06/07/21 14:36 Dose: 300 mg Documented by: Discontinued Medications Bisacodyl (Bisacodyl 10 Mg Supp) 10 mg RECTAL ONETIME ONE Stop: 06/04/21 11:36 Last Admin: 06/04/21 12:15 Dose: 10 mg Documented by: Dexamethasone (Dexamethasone 4 Mg/Ml Sdv) 4 mg IVPUSH Q12H [facility] Last Admin: 06/05/21 17:23 Dose: 4 mg Documented by: Furosemide (Furosemide 20 Mg/2 Ml Vial) 20 mg IVPUSH NOW ONE Stop: 06/01/21 17:31 Furosemide (Furosemide 20 Mg/2 Ml Vial) 20 mg IVPUSH NOW ONE Stop: 06/02/21 09:01 Last Admin: 06/02/21 10:11 Dose: 20 mg Documented by: Hydromorphone HCl (Hydromorphone 0.5 Mg/0.5 Ml Syringe) 0.5 mg IVPUSH Q3H PRN PRN Reason: Pain (severe 7-10) Last Admin: 06/01/21 16:07 Dose: 0.5 mg Documented by: Sodium Chloride (Normal Saline) 80 mls @ 3 mls/sec IV ASDIRECTED [facility] Stop: 05/30/21 16:31 Last Admin: 05/30/21 16:44 Dose: 3 mls/sec Documented by: Sodium Chloride (Normal Saline) 1,000 mls @ 100 mls/hr IV ASDIRECTED [facility] Last Admin: 05/30/21 18:11 Dose: 100 mls/hr Documented by: Iopamidol (Iopamidol 612 Mg/Ml 100 Ml Bottle) 100 ml IV . DIRECTED [facility] Stop: 05/30/21 16:31 Last Admin: 05/30/21 16:44 Dose: 100 ml Documented by: Lorazepam (Lorazepam 0.5 Mg Tab) 0.5 mg PO ONETIME ONE Stop: 05/31/21 10:01 Last Admin: 05/31/21 11:05 Dose: 0.5 mg Documented by: Oxycodone HCl (Oxycodone 5 Mg Tab) 5 mg PO Q4H PRN PRN Reason: Pain (moderate 4-6) Last Admin: 06/06/21 05:08 Dose: 5 mg Documented by: Potassium Chloride (Potassium Chloride 20 Meq Tab.Er) 40 meq PO ONETIME ONE Stop: 05/30/21 17:10 Last Admin: 05/30/21 18:03 Dose: 40 meq Documented by: Potassium Chloride (Potassium Chloride 20 Meq Tab.Er) 40 meq PO ONETIME ONE Stop: 06/07/21 09:31 Last Admin: 06/07/21 08:29 Dose: 40 meq Documented by: Tramadol HCl (Tramadol 50 Mg Tab) 50 mg PO Q4H PRN PRN Reason: Pain Last Admin: 05/30/21 14:37 Dose: 50 mg Documented by: - Exam Quality Assessment: No: Supplemental Oxygen General: Alert, Cooperative, No Acute Distress, Lethargic Lungs: Normal Respiratory Effort, Decreased Breath Sounds (mild both bases) Cardiovascular: Regular Rate, Regular Rhythm GI/Abdominal Exam: Soft, No Distention Extremities: Pedal Edema. No: Increased Warmth Skin: Warm, Dry Psy/Mental Status: Alert, Normal Affect - Patient Data Lab Results Last 24 hrs: Laboratory Results - last 24 hr 06/07/21 06/07/21 Range/Units 06:29 06:29 WBC 9.5 (4.5-11.0) K/uL RBC 3.93 (3.30-5.50) M/uL Hgb 13.4 D (12.0-15.0) g/dL Hct 39.6 (36.0-48.0) % MCV 101 H (80-98) fL MCH 34 H (27-31) pg MCHC 34 (32-36) % Plt Count 184 (150-400) K/uL Sodium 141 (140-148) mmol/L Potassium 3.5 L (3.6-5.2) mmol/L Chloride 111 H (100-108) mmol/L Carbon Dioxide 23 (21-32) mmol/L Anion Gap 10.5 (5.0-14.0) mmol/L BUN 18 (7-18) mg/dL Creatinine 0.8 (0.6-1.0) mg/dL Est Cr Clr Drug Dosing 47.26 mL/min Estimated GFR (MDRD) > 60 (>60) Glucose 93 (74-106) mg/dL Calcium 8.3 L (8.5-10.1) mg/dL Total Bilirubin 1.7 H (0.2-1.0) mg/dL AST 47 H (15-37) U/L ALT 59 (12-78) U/L Alkaline Phosphatase 156 H (46-116) U/L Total Protein 6.2 L (6.4-8.2) g/dL Albumin 1.9 L (3.4-5.0) g/dL Globulin 4.3 H (2.3-3.5) g/dL Albumin/Globulin Ratio 0.4 L (1.2-2.2) Result Diagrams: 06/07/21 06:29 06/07/21 06:29 Sepsis Event Note - Evaluation Sepsis Screening Result: No Definite Risk - Focused Exam Vital Signs: Vital Signs Temp Pulse Resp BP Pulse Ox 06/07/21 14:17 36.3 C 63 16 159/66 H 94 L 06/07/21 10:45 36.2 C 62 16 158/67 H 94 L 06/07/21 07:46 35.6 C L 60 16 163/74 H 93 L 06/07/21 03:00 35.8 C L 64 16 173/74 H 91 L - Problem List Review Problem List Initiated/Reviewed/Updated: Yes - My Orders Last 24 Hours: My Active Orders 06/06/21 14:00 ursodioL [Actigal] 300 mg PO TID 06/06/21 14:46 Morphine 15 mg PO Q4H PRN 06/06/21 Dinner Regular Diet [DIET] - Plan Plan:: ASSESSMENT AND PLAN - SEVERE LUMBAR SPINAL STENOSIS-contributing to lower back and radicular pain. Mildly improved since admission. She is extremely weak and deconditioned. Still requiring a lift assist machine for transfers. Holding off on increasing gabapentin because of somnolence. Transition to morphine yesterday. Pain control adequate. Still little bit sleepy after pain medications. -Epidural steroid injections contraindicated with coagulopathy -Decadron 2 mg twice daily with meals, today is day 6 -Gabapentin 100 mg p.o. twice daily -Cymbalta 30 mg p.o. daily -Pain medication as needed (changed the morphine 06/06) -Physical therapy consult PRIMARY BILIARY CIRRHOSIS-cholestatic picture with hepatic panel labs and elevated antimitochondrial antibody. Case discussed with gastroenterology at [facility]. They are suspicious of PBC as well. They did recommend a trial of ursodeoxycholic acid and outpatient follow-up. She has edema and ascites so we will start some diuretics. -Low-dose furosemide and spironolactone daily starting tomorrow -Continue ursodeoxycholic acid 300 mg 3 times daily today -Outpatient follow-up with gastroenterology GENERALIZED WEAKNESS-likely secondary to low back pain and left leg weakness with contribution from PBC. -Daily physical therapy COPD-longstanding smoking history. -Currently requiring 1 L of oxygen via nasal cannula, especially at night TOBACCO DEPENDENCE- -Encourage cessation MAINTENANCE ISSUES -DVT prophylaxis; enoxaparin -GI prophylaxis; not indicated -Uribe catheter; not indicated -Nutrition; regular diet DISPOSITION-anticipate discharge to [facility] for subacute rehab Nikita Story MD
[2021-06-08] MEDS: Dexamethasone 2 MG Tab PO SCH ×2 (07:58→18:55)
[2021-06-08] MEDS: Ursodiol 300 MG Cap PO SCH ×3 (09:21→20:17)
[2021-06-08] MEDS: DULoxetine 30 MG Cap PO SCH (09:21)
[2021-06-08] MEDS: Furosemide 20 MG Tab PO SCH (09:22)
[2021-06-08] MEDS: Spironolactone 25 MG Tab PO SCH (09:22)
[2021-06-08] MEDS: Enoxaparin 40 MG/0.4 ML Syringe SUBCUT SCH (14:34)
--- NOTE | 2021-06-08 14:34 | PCM.PN ---
- General Info Date of Service: 06/08/21 Subjective Update: No acute events overnight. Patient is more alert and interactive today. Pain continues to be fairly well controlled. She is a little bit stronger and moving better today. She has not had any fevers. Abdomen does not feel quite as distended today. Edema is slightly better after diuretics this morning. Spirits are good. Seems to be moving in the right direction. Functional Status: Reports: Pain Controlled - Review of Systems General: Reports: Weakness Musculoskeletal: Reports: Back Pain - Patient Data Vitals - Most Recent: Last Vital Signs Temp 36.4 C 06/08/21 14:18 Pulse 61 06/08/21 14:18 Resp 18 06/08/21 14:18 BP 178/62 H 06/08/21 14:18 Pulse Ox 93 L 06/08/21 14:18 Weight - Most Recent: 68.9 kg I&O - Last 24 Hours: Intake & Output 06/07/21 06/08/21 06/08/21 22:59 06:59 14:59 Intake Total 990 60 Balance 990 60 Lab Results Last 24 Hours: Laboratory Results - last 24 hr 06/08/21 Range/Units 04:22 Sodium 140 (140-148) mmol/L Potassium 3.9 (3.6-5.2) mmol/L Chloride 111 H (100-108) mmol/L Carbon Dioxide 22 (21-32) mmol/L Anion Gap 10.9 (5.0-14.0) mmol/L BUN 20 H (7-18) mg/dL Creatinine 0.8 (0.6-1.0) mg/dL Est Cr Clr Drug Dosing 47.26 mL/min Estimated GFR (MDRD) > 60 (>60) Glucose 114 H (74-106) mg/dL Calcium 8.0 L (8.5-10.1) mg/dL Med Orders - Current: Current Medications Dexamethasone (Dexamethasone 2 Mg Tab) 2 mg PO BIDMEALS [facility] Last Admin: 06/08/21 07:58 Dose: 2 mg Documented by: Duloxetine HCl (Duloxetine 30 Mg Cap) 30 mg PO DAILY [facility] Last Admin: 06/08/21 09:21 Dose: 30 mg Documented by: Enoxaparin Sodium (Enoxaparin 40 Mg/0.4 Ml Syringe) 40 mg SUBCUT Q24H [facility] Last Admin: 06/07/21 14:36 Dose: 40 mg Documented by: Furosemide (Furosemide 20 Mg Tab) 20 mg PO DAILY [facility] Last Admin: 06/08/21 09:22 Dose: 20 mg Documented by: Gabapentin (Gabapentin 100 Mg Cap) 100 mg PO BEDTIME [facility] Last Admin: 06/07/21 20:47 Dose: 100 mg Documented by: Morphine Sulfate (Morphine 15 Mg Tab) 7.5 mg PO Q4H PRN PRN Reason: Pain Last Admin: 06/07/21 18:34 Dose: 7.5 mg Documented by: Ondansetron HCl (Ondansetron 4 Mg/2 Ml Sdv) 4 mg IV Q4H PRN PRN Reason: Nausea/Vomiting Polyethylene Glycol (Polyethylene Glycol 3350 Powder 17 Gm Packet) 17 gm PO DAILY PRN PRN Reason: Constipation Last Admin: 06/06/21 07:39 Dose: 17 gm Documented by: Spironolactone (Spironolactone 25 Mg Tab) 12.5 mg PO DAILY [facility] Last Admin: 06/08/21 09:22 Dose: 12.5 mg Documented by: Ursodiol (Ursodiol 300 Mg Cap) 300 mg PO TID [facility] Last Admin: 06/08/21 09:21 Dose: 300 mg Documented by: Discontinued Medications Bisacodyl (Bisacodyl 10 Mg Supp) 10 mg RECTAL ONETIME ONE Stop: 06/04/21 11:36 Last Admin: 06/04/21 12:15 Dose: 10 mg Documented by: Dexamethasone (Dexamethasone 4 Mg/Ml Sdv) 4 mg IVPUSH Q12H [facility] Last Admin: 06/05/21 17:23 Dose: 4 mg Documented by: Furosemide (Furosemide 20 Mg/2 Ml Vial) 20 mg IVPUSH NOW ONE Stop: 06/01/21 17:31 Furosemide (Furosemide 20 Mg/2 Ml Vial) 20 mg IVPUSH NOW ONE Stop: 06/02/21 09:01 Last Admin: 06/02/21 10:11 Dose: 20 mg Documented by: Gabapentin (Gabapentin 100 Mg Cap) 100 mg PO BID [facility] Last Admin: 06/07/21 08:26 Dose: 100 mg Documented by: Hydromorphone HCl (Hydromorphone 0.5 Mg/0.5 Ml Syringe) 0.5 mg IVPUSH Q3H PRN PRN Reason: Pain (severe 7-10) Last Admin: 06/01/21 16:07 Dose: 0.5 mg Documented by: Sodium Chloride (Normal Saline) 80 mls @ 3 mls/sec IV ASDIRECTED [facility] Stop: 05/30/21 16:31 Last Admin: 05/30/21 16:44 Dose: 3 mls/sec Documented by: Sodium Chloride (Normal Saline) 1,000 mls @ 100 mls/hr IV ASDIRECTED [facility] Last Admin: 05/30/21 18:11 Dose: 100 mls/hr Documented by: Iopamidol (Iopamidol 612 Mg/Ml 100 Ml Bottle) 100 ml IV . DIRECTED [facility] Stop: 05/30/21 16:31 Last Admin: 05/30/21 16:44 Dose: 100 ml Documented by: Lorazepam (Lorazepam 0.5 Mg Tab) 0.5 mg PO ONETIME ONE Stop: 05/31/21 10:01 Last Admin: 05/31/21 11:05 Dose: 0.5 mg Documented by: Morphine Sulfate (Morphine 15 Mg Tab) 15 mg PO Q4H PRN PRN Reason: Pain Last Admin: 06/07/21 08:28 Dose: 15 mg Documented by: Oxycodone HCl (Oxycodone 5 Mg Tab) 5 mg PO Q4H PRN PRN Reason: Pain (moderate 4-6) Last Admin: 06/06/21 05:08 Dose: 5 mg Documented by: Potassium Chloride (Potassium Chloride 20 Meq Tab.Er) 40 meq PO ONETIME ONE Stop: 05/30/21 17:10 Last Admin: 05/30/21 18:03 Dose: 40 meq Documented by: Potassium Chloride (Potassium Chloride 20 Meq Tab.Er) 40 meq PO ONETIME ONE Stop: 06/07/21 09:31 Last Admin: 06/07/21 08:29 Dose: 40 meq Documented by: Tramadol HCl (Tramadol 50 Mg Tab) 50 mg PO Q4H PRN PRN Reason: Pain Last Admin: 05/30/21 14:37 Dose: 50 mg Documented by: - Exam Quality Assessment: No: Supplemental Oxygen General: Alert, Oriented, Cooperative, No Acute Distress Lungs: Normal Respiratory Effort GI/Abdominal Exam: Soft, Distended Extremities: Pedal Edema Skin: Warm, Dry Psy/Mental Status: Alert, Normal Affect - Patient Data Lab Results Last 24 hrs: Laboratory Results - last 24 hr 12/16/21 Range/Units 04:22 Sodium 140 (140-148) mmol/L Potassium 3.9 (3.6-5.2) mmol/L Chloride 111 H (100-108) mmol/L Carbon Dioxide 22 (21-32) mmol/L Anion Gap 10.9 (5.0-14.0) mmol/L BUN 20 H (7-18) mg/dL Creatinine 0.8 (0.6-1.0) mg/dL Est Cr Clr Drug Dosing 47.26 mL/min Estimated GFR (MDRD) > 60 (>60) Glucose 114 H (74-106) mg/dL Calcium 8.0 L (8.5-10.1) mg/dL Result Diagrams: 06/07/21 06:29 06/08/21 04:22 Sepsis Event Note - Evaluation Sepsis Screening Result: No Definite Risk - Focused Exam Vital Signs: Vital Signs Temp Pulse Resp BP Pulse Ox 06/08/21 14:18 36.4 C 61 18 178/62 H 93 L 06/08/21 10:52 35.9 C L 65 18 178/71 H 100 06/08/21 07:00 36.4 C 66 18 174/55 H 96 06/08/21 03:00 36.4 C 66 18 144/69 H 94 L - Problem List Review Problem List Initiated/Reviewed/Updated: Yes - My Orders Last 24 Hours: My Active Orders 06/07/21 17:10 Morphine 7.5 mg PO Q4H PRN 06/07/21 21:00 Gabapentin [Neurontin] 100 mg PO BEDTIME 06/08/21 09:00 Furosemide [Lasix] 20 mg PO DAILY Spironolactone [Aldactone] 12.5 mg PO DAILY 06/09/21 05:00 BASIC METABOLIC PANEL,BMP [CHEM] Timed - Plan Plan:: ASSESSMENT AND PLAN - SEVERE LUMBAR SPINAL STENOSIS-contributing to lower back and radicular pain. Pain control acceptable. Last somnolence/lethargy with medication changes. -Epidural steroid injections contraindicated with coagulopathy -Decadron 2 mg twice daily with meals, today is day 7 -Gabapentin 100 mg p.o. at bedtime -Cymbalta 30 mg p.o. daily -Pain medication as needed (dose reduced 06/07) -Physical therapy consult PRIMARY BILIARY CIRRHOSIS-cholestatic picture with hepatic panel labs and elevated antimitochondrial antibody. Case discussed with gastroenterology at [facility]. They are suspicious of PBC as well. They did recommend a trial of ursodeoxycholic acid and outpatient follow-up. She has edema and asci fiona so diuretics were initiated. -Low-dose furosemide and spironolactone daily -Continue ursodeoxycholic acid 300 mg 3 times daily today -Outpatient follow-up with gastroenterology (not urgent, needs to complete physical therapy first) GENERALIZED WEAKNESS-likely secondary to low back pain and left leg weakness with contribution from PBC. Slowly improving. -Daily physical therapy COPD-longstanding smoking history. -Currently requiring 1 L of oxygen via nasal cannula, especially at night TOBACCO DEPENDENCE- -Encourage cessation MAINTENANCE ISSUES -DVT prophylaxis; enoxaparin -GI prophylaxis; not indicated -Uribe catheter; not indicated -Nutrition; regular diet DISPOSITION-anticipate discharge to [facility] for subacute rehab Nikita Story MD
[2021-06-08] MEDS: Gabapentin 100 MG Cap PO SCH (20:18)
[2021-06-09] MEDS ORDERED: Potassium Chloride 20 MEQ Tab.ER PO ONE (08:30)
[2021-06-09] MEDS: DULoxetine 30 MG Cap PO SCH (08:34)
[2021-06-09] MEDS: Dexamethasone 2 MG Tab PO SCH ×2 (08:34→17:38)
[2021-06-09] MEDS: Spironolactone 25 MG Tab PO SCH (08:34)
[2021-06-09] MEDS: Furosemide 20 MG Tab PO SCH (08:34)
[2021-06-09] MEDS: Ursodiol 300 MG Cap PO SCH ×3 (08:34→20:58)
[2021-06-09] MEDS: Polyethylene Glycol 3350 Powder 17 GM Packet PO PRN (08:39)
[2021-06-09] MEDS ORDERED: Bisacodyl 10 MG Supp RECTAL ONE (08:57)
[2021-06-09] MEDS: Enoxaparin 40 MG/0.4 ML Syringe SUBCUT SCH (13:16)
--- NOTE | 2021-06-09 14:45 | PCM.PN ---
- General Info Date of Service: 06/09/21 Subjective Update: There were no acute events overnight. Patient reports her pain control is quite acceptable at this time. Moving from the bed to chair does not increase her dis comfort significantly. She is more alert and interactive today with the decrease in the dose of morphine. She has not had any fevers. No significant abdominal pain or nausea. Appetite is not great but seems a little better today. She is off oxygen this afternoon. Functional Status: Reports: Pain Controlled, Tolerating Diet - Review of Systems General: Reports: Weakness Cardiovascular: Reports: Edema - Patient Data Vitals - Most Recent: Last Vital Signs Temp 35.8 C L 06/09/21 10:32 Pulse 60 06/09/21 10:32 Resp 20 06/09/21 10:32 BP 162/62 H 06/09/21 10:32 Pulse Ox 95 06/09/21 10:32 Weight - Most Recent: 69.1 kg I&O - Last 24 Hours: Intake & Output 06/08/21 06/09/21 06/09/21 22:59 06:59 14:59 Intake Total 200 400 460 Balance 200 400 460 Lab Results Last 24 Hours: Laboratory Results - last 24 hr 06/09/21 Range/Units 05:10 Sodium 139 L (140-148) mmol/L Potassium 3.6 (3.6-5.2) mmol/L Chloride 110 H (100-108) mmol/L Carbon Dioxide 22 (21-32) mmol/L Anion Gap 10.6 (5.0-14.0) mmol/L BUN 18 (7-18) mg/dL Creatinine 0.6 (0.6-1.0) mg/dL Est Cr Clr Drug Dosing 63.01 mL/min Estimated GFR (MDRD) > 60 (>60) Glucose 110 H (74-106) mg/dL Calcium 8.0 L (8.5-10.1) mg/dL Med Orders - Current: Current Medications Dexamethasone (Dexamethasone 2 Mg Tab) 2 mg PO BIDMEALS [facility] Last Admin: 06/09/21 08:34 Dose: 2 mg Documented by: Duloxetine HCl (Duloxetine 30 Mg Cap) 30 mg PO DAILY [facility] Last Admin: 06/09/21 08:34 Dose: 30 mg Documented by: Enoxaparin Sodium (Enoxaparin 40 Mg/0.4 Ml Syringe) 40 mg SUBCUT Q24H [facility] Last Admin: 06/09/21 13:16 Dose: 40 mg Documented by: Furosemide (Furosemide 20 Mg Tab) 20 mg PO DAILY [facility] Last Admin: 06/09/21 08:34 Dose: 20 mg Documented by: Gabapentin (Gabapentin 100 Mg Cap) 100 mg PO BEDTIME [facility] Last Admin: 06/08/21 20:18 Dose: 100 mg Documented by: Morphine Sulfate (Morphine 15 Mg Tab) 7.5 mg PO Q4H PRN PRN Reason: Pain Last Admin: 06/07/21 18:34 Dose: 7.5 mg Documented by: Ondansetron HCl (Ondansetron 4 Mg/2 Ml Sdv) 4 mg IV Q4H PRN PRN Reason: Nausea/Vomiting Polyethylene Glycol (Polyethylene Glycol 3350 Powder 17 Gm Packet) 17 gm PO DAILY PRN PRN Reason: Constipation Last Admin: 06/09/21 08:39 Dose: 17 gm Documented by: Senna/Docusate Sodium (Docusate Sodium/Sennosides 50-8.6 Mg Tab) 1 tab PO BID [facility] Last Admin: 06/09/21 10:04 Dose: 1 tab Documented by: Spironolactone (Spironolactone 25 Mg Tab) 12.5 mg PO DAILY [facility] Last Admin: 06/09/21 08:34 Dose: 12.5 mg Documented by: Ursodiol (Ursodiol 300 Mg Cap) 300 mg PO TID [facility] Last Admin: 06/09/21 13:17 Dose: 300 mg Documented by: Discontinued Medications Bisacodyl (Bisacodyl 10 Mg Supp) 10 mg RECTAL ONETIME ONE Stop: 06/04/21 11:36 Last Admin: 06/04/21 12:15 Dose: 10 mg Documented by: Bisacodyl (Bisacodyl 10 Mg Supp) 10 mg RECTAL ONETIME ONE Stop: 06/09/21 08:58 Last Admin: 06/09/21 10:04 Dose: 10 mg Documented by: Dexamethasone (Dexamethasone 4 Mg/Ml Sdv) 4 mg IVPUSH Q12H [facility] Last Admin: 06/05/21 17:23 Dose: 4 mg Documented by: Furosemide (Furosemide 20 Mg/2 Ml Vial) 20 mg IVPUSH NOW ONE Stop: 06/01/21 17:31 Furosemide (Furosemide 20 Mg/2 Ml Vial) 20 mg IVPUSH NOW ONE Stop: 06/02/21 09:01 Last Admin: 06/02/21 10:11 Dose: 20 mg Documented by: Gabapentin (Gabapentin 100 Mg Cap) 100 mg PO BID [facility] Last Admin: 06/07/21 08:26 Dose: 100 mg Documented by: Hydromorphone HCl (Hydromorphone 0.5 Mg/0.5 Ml Syringe) 0.5 mg IVPUSH Q3H PRN PRN Reason: Pain (severe 7-10) Last Admin: 06/01/21 16:07 Dose: 0.5 mg Documented by: Sodium Chloride (Normal Saline) 80 mls @ 3 mls/sec IV ASDIRECTED [facility] Stop: 05/30/21 16:31 Last Admin: 05/30/21 16:44 Dose: 3 mls/sec Documented by: Sodium Chloride (Normal Saline) 1,000 mls @ 100 mls/hr IV ASDIRECTED [facility] Last Admin: 05/30/21 18:11 Dose: 100 mls/hr Documented by: Iopamidol (Iopamidol 612 Mg/Ml 100 Ml Bottle) 100 ml IV . DIRECTED [facility] Stop: 05/30/21 16:31 Last Admin: 05/30/21 16:44 Dose: 100 ml Documented by: Lorazepam (Lorazepam 0.5 Mg Tab) 0.5 mg PO ONETIME ONE Stop: 05/31/21 10:01 Last Admin: 05/31/21 11:05 Dose: 0.5 mg Documented by: Morphine Sulfate (Morphine 15 Mg Tab) 15 mg PO Q4H PRN PRN Reason: Pain Last Admin: 06/07/21 08:28 Dose: 15 mg Documented by: Oxycodone HCl (Oxycodone 5 Mg Tab) 5 mg PO Q4H PRN PRN Reason: Pain (moderate 4-6) Last Admin: 06/06/21 05:08 Dose: 5 mg Documented by: Potassium Chloride (Potassium Chloride 20 Meq Tab.Er) 40 meq PO ONETIME ONE Stop: 05/30/21 17:10 Last Admin: 05/30/21 18:03 Dose: 40 meq Documented by: Potassium Chloride (Potassium Chloride 20 Meq Tab.Er) 40 meq PO ONETIME ONE Stop: 06/07/21 09:31 Last Admin: 06/07/21 08:29 Dose: 40 meq Documented by: Potassium Chloride (Potassium Chloride 20 Meq Tab.Er) 40 meq PO ONETIME ONE Stop: 06/09/21 08:31 Last Admin: 06/09/21 08:33 Dose: 40 meq Documented by: Tramadol HCl (Tramadol 50 Mg Tab) 50 mg PO Q4H PRN PRN Reason: Pain Last Admin: 05/30/21 14:37 Dose: 50 mg Documented by: - Exam Quality Assessment: No: Supplemental Oxygen General: Alert, Oriented, Cooperative, No Acute Distress Lungs: Normal Respiratory Effort GI/Abdominal Exam: Soft, No Distention Extremities: Pedal Edema. No: Increased Warmth Skin: Warm, Dry Psy/Mental Status: Alert, Normal Affect - Patient Data Lab Results Last 24 hrs: Laboratory Results - last 24 hr 06/09/21 Range/Units 05:10 Sodium 139 L (140-148) mmol/L Potassium 3.6 (3.6-5.2) mmol/L Chloride 110 H (100-108) mmol/L Carbon Dioxide 22 (21-32) mmol/L Anion Gap 10.6 (5.0-14.0) mmol/L BUN 18 (7-18) mg/dL Creatinine 0.6 (0.6-1.0) mg/dL Est Cr Clr Drug Dosing 63.01 mL/min Estimated GFR (MDRD) > 60 (>60) Glucose 110 H (74-106) mg/dL Calcium 8.0 L (8.5-10.1) mg/dL Result Diagrams: 06/07/21 06:29 06/09/21 05:10 Sepsis Event Note - Evaluation Sepsis Screening Result: No Definite Risk - Focused Exam Vital Signs: Vital Signs Temp Pulse Resp BP Pulse Ox 06/09/21 10:32 35.8 C L 60 20 162/62 H 95 06/09/21 07:10 36.4 C 63 18 173/63 H 90 L 06/09/21 02:53 36.0 C L 67 18 167/64 H 92 L - Problem List Review Problem List Initiated/Reviewed/Updated: Yes - My Orders Last 24 Hours: My Active Orders 06/09/21 09:00 Docusate Sodium/Sennosides [Senna Plus] 1 tab PO BID 06/10/21 05:00 CBC W/O DIFF,HEMOGRAM [HEME] Timed (1) COMPREHENSIVE METABOLIC PN,CMP [CHEM] Timed - Plan Plan:: ASSESSMENT AND PLAN - SEVERE LUMBAR SPINAL STENOSIS-contributing to lower back and radicular pain. Pain control acceptable. Doing well with decreased dose of pain medication. -Epidural steroid injections contraindicated with coagulopathy -Decadron 2 mg twice daily with meals, today is day 8 -Gabapentin 100 mg p.o. at bedtime -Cymbalta 30 mg p.o. daily -Pain medication as needed (dose reduced 06/07) -Physical therapy consult PRIMARY BILIARY CIRRHOSIS-cholestatic picture with hepatic panel labs and elevated antimitochondrial antibody. Case discussed with gastroenterology at [facility], likely PBC, suggested trial of ursodeoxycholic acid and outpatient follow-up. She has edema and ascites so diuretics were initiated. -Low-dose furosemide and spironolactone daily -Continue ursodeoxycholic acid 300 mg 3 times daily today -Outpatient follow-up with gastroenterology (not urgent, needs to complete physical therapy first) GENERALIZED WEAKNESS-likely secondary to low back pain and left leg weakness with contribution from PBC. Slowly improving. -Daily physical therapy COPD-longstanding smoking history. -Supplemental oxygen as needed TOBACCO DEPENDENCE- -Encourage cessation MAINTENANCE ISSUES -DVT prophylaxis; enoxaparin -GI prophylaxis; not indicated -Uribe catheter; not indicated -Nutrition; regular diet DISPOSITION-anticipate discharge to [facility] for subacute rehab Nikita Story MD
[2021-06-09] MEDS: Gabapentin 100 MG Cap PO SCH (20:58)
[2021-06-09] MEDS: Morphine 15 MG Tab PO PRN (23:52)
[2021-06-10] MEDS: Furosemide 20 MG Tab PO SCH (08:19)
[2021-06-10] MEDS: Ursodiol 300 MG Cap PO SCH ×3 (08:19→21:37)
[2021-06-10] MEDS: DULoxetine 30 MG Cap PO SCH (08:19)
[2021-06-10] MEDS: Dexamethasone 2 MG Tab PO SCH ×2 (08:19→17:48)
[2021-06-10] MEDS: Spironolactone 25 MG Tab PO SCH (08:19)
--- NOTE | 2021-06-10 10:56 | PCM.PN ---
- General Info Date of Service: 06/10/21 Subjective Update: No acute events overnight. Pain is well controlled. She continues to be alert and interactive and feels a little better each day. Lower extremity edema is slightly better but not resolved. Kidney function stable. No fevers. Appetite not great but may be a little bit better. Strength is slightly better again today. Functional Status: Reports: Pain Controlled, Tolerating Diet - Review of Systems General: Reports: Weakness Musculoskeletal: Reports: Back Pain - Patient Data Vitals - Most Recent: Last Vital Signs Temp 36.0 C L 06/10/21 07:00 Pulse 59 L 06/10/21 07:00 Resp 20 06/10/21 07:00 BP 143/53 H 06/10/21 07:00 Pulse Ox 93 L 06/10/21 07:00 Weight - Most Recent: 69.4 kg I&O - Last 24 Hours: Intake & Output 06/09/21 06/10/21 06/10/21 22:59 06:59 14:59 Intake Total 1405 400 Balance 1405 400 Lab Results Last 24 Hours: Laboratory Results - last 24 hr 06/10/21 06/10/21 Range/Units 04:05 04:05 WBC 11.2 H (4.5-11.0) K/uL RBC 3.49 (3.30-5.50) M/uL Hgb 12.0 (12.0-15.0) g/dL Hct 35.1 L (36.0-48.0) % MCV 101 H (80-98) fL MCH 34 H (27-31) pg MCHC 34 (32-36) % Plt Count 154 (150-400) K/uL Sodium 139 L (140-148) mmol/L Potassium 3.8 (3.6-5.2) mmol/L Chloride 111 H (100-108) mmol/L Carbon Dioxide 23 (21-32) mmol/L Anion Gap 8.8 (5.0-14.0) mmol/L BUN 17 (7-18) mg/dL Creatinine 0.7 (0.6-1.0) mg/dL Est Cr Clr Drug Dosing 54.01 mL/min Estimated GFR (MDRD) > 60 (>60) Glucose 106 (74-106) mg/dL Calcium 7.9 L (8.5-10.1) mg/dL Total Bilirubin 1.5 H (0.2-1.0) mg/dL AST 35 (15-37) U/L ALT 38 (12-78) U/L Alkaline Phosphatase 118 H (46-116) U/L Total Protein 5.1 L (6.4-8.2) g/dL Albumin 1.5 L (3.4-5.0) g/dL Globulin 3.6 H (2.3-3.5) g/dL Albumin/Globulin Ratio 0.4 L (1.2-2.2) Med Orders - Current: Current Medications Dexamethasone (Dexamethasone 2 Mg Tab) 2 mg PO [facility]MEALS [facility] Last Admin: 06/10/21 08:19 Dose: 2 mg Documented by: Duloxetine HCl (Duloxetine 30 Mg Cap) 30 mg PO DAILY [facility] Last Admin: 06/10/21 08:19 Dose: 30 mg Documented by: Enoxaparin Sodium (Enoxaparin 40 Mg/0.4 Ml Syringe) 40 mg SUBCUT Q24H [facility] Last Admin: 06/09/21 13:16 Dose: 40 mg Documented by: Furosemide (Furosemide 20 Mg Tab) 20 mg PO DAILY [facility] Last Admin: 06/10/21 08:19 Dose: 20 mg Documented by: Gabapentin (Gabapentin 100 Mg Cap) 100 mg PO BEDTIME [facility] Last Admin: 06/09/21 20:58 Dose: 100 mg Documented by: Morphine Sulfate (Morphine 15 Mg Tab) 7.5 mg PO Q4H PRN PRN Reason: Pain Last Admin: 06/09/21 23:52 Dose: 7.5 mg Documented by: Ondansetron HCl (Ondansetron 4 Mg/2 Ml Sdv) 4 mg IV Q4H PRN PRN Reason: Nausea/Vomiting Polyethylene Glycol (Polyethylene Glycol 3350 Powder 17 Gm Packet) 17 gm PO DAILY PRN PRN Reason: Constipation Last Admin: 06/09/21 08:39 Dose: 17 gm Documented by: Senna/Docusate Sodium (Docusate Sodium/Sennosides 50-8.6 Mg Tab) 1 tab PO BID [facility] Last Admin: 06/10/21 08:20 Dose: 1 tab Documented by: Spironolactone (Spironolactone 25 Mg Tab) 12.5 mg PO DAILY [facility] Last Admin: 06/10/21 08:19 Dose: 12.5 mg Documented by: Ursodiol (Ursodiol 300 Mg Cap) 300 mg PO TID [facility] Last Admin: 06/10/21 08:19 Dose: 300 mg Documented by: Discontinued Medications Bisacodyl (Bisacodyl 10 Mg Supp) 10 mg RECTAL ONETIME ONE Stop: 06/04/21 11:36 Last Admin: 06/04/21 12:15 Dose: 10 mg Documented by: Bisacodyl (Bisacodyl 10 Mg Supp) 10 mg RECTAL ONETIME ONE Stop: 06/09/21 08:58 Last Admin: 06/09/21 10:04 Dose: 10 mg Documented by: Dexamethasone (Dexamethasone 4 Mg/Ml Sdv) 4 mg IVPUSH Q12H [facility] Last Admin: 06/05/21 17:23 Dose: 4 mg Documented by: Furosemide (Furosemide 20 Mg/2 Ml Vial) 20 mg IVPUSH NOW ONE Stop: 06/01/21 17:31 Furosemide (Furosemide 20 Mg/2 Ml Vial) 20 mg IVPUSH NOW ONE Stop: 06/02/21 09:01 Last Admin: 06/02/21 10:11 Dose: 20 mg Documented by: Gabapentin (Gabapentin 100 Mg Cap) 100 mg PO BID [facility] Last Admin: 06/07/21 08:26 Dose: 100 mg Documented by: Hydromorphone HCl (Hydromorphone 0.5 Mg/0.5 Ml Syringe) 0.5 mg IVPUSH Q3H PRN PRN Reason: Pain (severe 7-10) Last Admin: 06/01/21 16:07 Dose: 0.5 mg Documented by: Sodium Chloride (Normal Saline) 80 mls @ 3 mls/sec IV ASDIRECTED [facility] Stop: 05/30/21 16:31 Last Admin: 05/30/21 16:44 Dose: 3 mls/sec Documented by: Sodium Chloride (Normal Saline) 1,000 mls @ 100 mls/hr IV ASDIRECTED [facility] Last Admin: 05/30/21 18:11 Dose: 100 mls/hr Documented by: Iopamidol (Iopamidol 612 Mg/Ml 100 Ml Bottle) 100 ml IV . DIRECTED [facility] Stop: 05/30/21 16:31 Last Admin: 05/30/21 16:44 Dose: 100 ml Documented by: Lorazepam (Lorazepam 0.5 Mg Tab) 0.5 mg PO ONETIME ONE Stop: 05/31/21 10:01 Last Admin: 05/31/21 11:05 Dose: 0.5 mg Documented by: Morphine Sulfate (Morphine 15 Mg Tab) 15 mg PO Q4H PRN PRN Reason: Pain Last Admin: 06/07/21 08:28 Dose: 15 mg Documented by: Oxycodone HCl (Oxycodone 5 Mg Tab) 5 mg PO Q4H PRN PRN Reason: Pain (moderate 4-6) Last Admin: 06/06/21 05:08 Dose: 5 mg Documented by: Potassium Chloride (Potassium Chloride 20 Meq Tab.Er) 40 meq PO ONETIME ONE Stop: 05/30/21 17:10 Last Admin: 05/30/21 18:03 Dose: 40 meq Documented by: Potassium Chloride (Potassium Chloride 20 Meq Tab.Er) 40 meq PO ONETIME ONE Stop: 06/07/21 09:31 Last Admin: 06/07/21 08:29 Dose: 40 meq Documented by: Potassium Chloride (Potassium Chloride 20 Meq Tab.Er) 40 meq PO ONETIME ONE Stop: 06/09/21 08:31 Last Admin: 06/09/21 08:33 Dose: 40 meq Documented by: Tramadol HCl (Tramadol 50 Mg Tab) 50 mg PO Q4H PRN PRN Reason: Pain Last Admin: 05/30/21 14:37 Dose: 50 mg Documented by: - Exam Quality Assessment: No: Supplemental Oxygen General: Alert, Oriented, Cooperative, No Acute Distress Lungs: Normal Respiratory Effort GI/Abdominal Exam: Soft, No Distention Extremities: Pedal Edema Skin: Warm, Dry Psy/Mental Status: Alert, Normal Affect - Patient Data Lab Results Last 24 hrs: Laboratory Results - last 24 hr 06/10/21 06/10/21 Range/Units 04:05 04:05 WBC 11.2 H (4.5-11.0) K/uL RBC 3.49 (3.30-5.50) M/uL Hgb 12.0 (12.0-15.0) g/dL Hct 35.1 L (36.0-48.0) % MCV 101 H (80-98) fL MCH 34 H (27-31) pg MCHC 34 (32-36) % Plt Count 154 (150-400) K/uL Sodium 139 L (140-148) mmol/L Potassium 3.8 (3.6-5.2) mmol/L Chloride 111 H (100-108) mmol/L Carbon Dioxide 23 (21-32) mmol/L Anion Gap 8.8 (5.0-14.0) mmol/L BUN 17 (7-18) mg/dL Creatinine 0.7 (0.6-1.0) mg/dL Est Cr Clr Drug Dosing 54.01 mL/min Estimated GFR (MDRD) > 60 (>60) Glucose 106 (74-106) mg/dL Calcium 7.9 L (8.5-10.1) mg/dL Total Bilirubin 1.5 H (0.2-1.0) mg/dL AST 35 (15-37) U/L ALT 38 (12-78) U/L Alkaline Phosphatase 118 H (46-116) U/L Total Protein 5.1 L (6.4-8.2) g/dL Albumin 1.5 L (3.4-5.0) g/dL Globulin 3.6 H (2.3-3.5) g/dL Albumin/Globulin Ratio 0.4 L (1.2-2.2) Result Diagrams: 06/10/21 04:05 06/10/21 04:05 Sepsis Event Note - Evaluation Sepsis Screening Result: No Definite Risk - Focused Exam Vital Signs: Vital Signs Temp Pulse Resp BP BP Pulse Ox 06/10/21 07:00 36.0 C L 59 L 20 143/53 H 93 L 06/10/21 03:00 36.6 C 70 18 135/61 94 L - Problem List Review Problem List Initiated/Reviewed/Updated: Yes - Plan Plan:: ASSESSMENT AND PLAN - SEVERE LUMBAR SPINAL STENOSIS-contributing to lower back and radicular pain. Pain control acceptable and she is slowly improving. -Epidural steroid injections contraindicated with coagulopathy -Decadron 2 mg twice daily with meals, today is day 9 -Gabapentin 100 mg p.o. at bedtime -Cymbalta 30 mg p.o. daily -Morphine 7.5 mg as needed (dose reduced 06/07) -Physical therapy consult PRIMARY BILIARY CIRRHOSIS-cholestatic picture with hepatic panel labs and elevated antimitochondrial antibody. Case discussed with gastroenterology at [facility], likely PBC, suggested trial of ursodeoxycholic acid and outpatient follow-up. She has edema and ascites so diuretics were initiated. -Low-dose furosemide and spironolactone daily -Continue ursodeoxycholic acid 300 mg 3 times daily -Outpatient follow-up with gastroenterology (not urgent, needs to complete physical therapy first) GENERALIZED WEAKNESS-likely secondary to low back pain and left leg weakness with contribution from PBC. Slowly improving. -Daily physical therapy COPD-longstanding smoking history. -Supplemental oxygen as needed TOBACCO DEPENDENCE- -Encourage cessation MAINTENANCE ISSUES -DVT prophylaxis; enoxaparin -GI prophylaxis; not indicated -Uribe catheter; not indicated -Nutrition; regular diet DISPOSITION-anticipate discharge to [facility] for subacute rehab Nikita Story MD
[2021-06-10] MEDS: Enoxaparin 40 MG/0.4 ML Syringe SUBCUT SCH (15:19)
[2021-06-10] MEDS: Gabapentin 100 MG Cap PO SCH (21:37)
[2021-06-11] MEDS: Furosemide 20 MG Tab PO SCH (09:11)
[2021-06-11] MEDS: Spironolactone 25 MG Tab PO SCH ×2 (09:11→21:29)
[2021-06-11] MEDS: Ursodiol 300 MG Cap PO SCH ×3 (09:11→21:29)
[2021-06-11] MEDS: DULoxetine 30 MG Cap PO SCH (09:11)
[2021-06-11] MEDS: Dexamethasone 2 MG Tab PO SCH ×2 (09:11→16:19)
--- NOTE | 2021-06-11 13:49 | PCM.PN ---
- General Info Date of Service: 06/11/21 Subjective Update: Ms. Ndiaye has shown slow improvement over the past few days with improved appetite and slowly increasing strength. Back pain seems to be well controlled at this time and liver function has improved significantly. Functional Status: Reports: Tolerating Diet, Urinating - Review of Systems General: Reports: Weakness, Fatigue. Denies: Fever, Chills Pulmonary: Reports: No Symptoms Cardiovascular: Reports: No Symptoms Gastrointestinal: Reports: No Symptoms Genitourinary: Reports: No Symptoms - Patient Data Vitals - Most Recent: Last Vital Signs Temp 96.3 F L 06/11/21 10:16 Pulse 82 06/11/21 10:16 Resp 18 06/11/21 10:16 BP 141/51 H 06/11/21 10:16 Pulse Ox 82 L 06/11/21 10:16 Weight - Most Recent: 153 lb 14.122 oz I&O - Last 24 Hours: Intake & Output 06/10/21 06/11/21 06/11/21 22:59 06:59 14:59 Intake Total 200 1000 Balance 200 1000 Med Orders - Current: Current Medications Dexamethasone (Dexamethasone 2 Mg Tab) 2 mg PO BIDMEALS [facility] Last Admin: 06/11/21 09:11 Dose: 2 mg Documented by: Duloxetine HCl (Duloxetine 30 Mg Cap) 30 mg PO DAILY [facility] Last Admin: 06/11/21 09:11 Dose: 30 mg Documented by: Enoxaparin Sodium (Enoxaparin 40 Mg/0.4 Ml Syringe) 40 mg SUBCUT Q24H [facility] Last Admin: 06/10/21 15:19 Dose: 40 mg Documented by: Furosemide (Furosemide 20 Mg Tab) 20 mg PO DAILY [facility] Last Admin: 06/11/21 09:11 Dose: 20 mg Documented by: Gabapentin (Gabapentin 100 Mg Cap) 100 mg PO BEDTIME [facility] Last Admin: 06/10/21 21:37 Dose: 100 mg Documented by: Morphine Sulfate (Morphine 15 Mg Tab) 7.5 mg PO Q4H PRN PRN Reason: Pain Last Admin: 06/09/21 23:52 Dose: 7.5 mg Documented by: Ondansetron HCl (Ondansetron 4 Mg/2 Ml Sdv) 4 mg IV Q4H PRN PRN Reason: Nausea/Vomiting Polyethylene Glycol (Polyethylene Glycol 3350 Powder 17 Gm Packet) 17 gm PO DAILY PRN PRN Reason: Constipation Last Admin: 06/09/21 08:39 Dose: 17 gm Documented by: Senna/Docusate Sodium (Docusate Sodium/Sennosides 50-8.6 Mg Tab) 1 tab PO BID [facility] Last Admin: 06/11/21 09:11 Dose: 1 tab Documented by: Spironolactone (Spironolactone 25 Mg Tab) 25 mg PO BID [facility] Ursodiol (Ursodiol 300 Mg Cap) 300 mg PO TID [facility] Last Admin: 06/11/21 09:11 Dose: 300 mg Documented by: Discontinued Medications Bisacodyl (Bisacodyl 10 Mg Supp) 10 mg RECTAL ONETIME ONE Stop: 06/04/21 11:36 Last Admin: 06/04/21 12:15 Dose: 10 mg Documented by: Bisacodyl (Bisacodyl 10 Mg Supp) 10 mg RECTAL ONETIME ONE Stop: 06/09/21 08:58 Last Admin: 06/09/21 10:04 Dose: 10 mg Documented by: Dexamethasone (Dexamethasone 4 Mg/Ml Sdv) 4 mg IVPUSH Q12H [facility] Last Admin: 06/05/21 17:23 Dose: 4 mg Documented by: Furosemide (Furosemide 20 Mg/2 Ml Vial) 20 mg IVPUSH NOW ONE Stop: 06/01/21 17:31 Furosemide (Furosemide 20 Mg/2 Ml Vial) 20 mg IVPUSH NOW ONE Stop: 06/02/21 09:01 Last Admin: 06/02/21 10:11 Dose: 20 mg Documented by: Gabapentin (Gabapentin 100 Mg Cap) 100 mg PO BID [facility] Last Admin: 06/07/21 08:26 Dose: 100 mg Documented by: Hydromorphone HCl (Hydromorphone 0.5 Mg/0.5 Ml Syringe) 0.5 mg IVPUSH Q3H PRN PRN Reason: Pain (severe 7-10) Last Admin: 06/01/21 16:07 Dose: 0.5 mg Documented by: Sodium Chloride (Normal Saline) 80 mls @ 3 mls/sec IV ASDIRECTED [facility] Stop: 05/30/21 16:31 Last Admin: 05/30/21 16:44 Dose: 3 mls/sec Documented by: Sodium Chloride (Normal Saline) 1,000 mls @ 100 mls/hr IV ASDIRECTED [facility] Last Admin: 05/30/21 18:11 Dose: 100 mls/hr Documented by: Iopamidol (Iopamidol 612 Mg/Ml 100 Ml Bottle) 100 ml IV . DIRECTED [facility] Stop: 05/30/21 16:31 Last Admin: 05/30/21 16:44 Dose: 100 ml Documented by: Lorazepam (Lorazepam 0.5 Mg Tab) 0.5 mg PO ONETIME ONE Stop: 05/31/21 10:01 Last Admin: 05/31/21 11:05 Dose: 0.5 mg Documented by: Morphine Sulfate (Morphine 15 Mg Tab) 15 mg PO Q4H PRN PRN Reason: Pain Last Admin: 06/07/21 08:28 Dose: 15 mg Documented by: Oxycodone HCl (Oxycodone 5 Mg Tab) 5 mg PO Q4H PRN PRN Reason: Pain (moderate 4-6) Last Admin: 06/06/21 05:08 Dose: 5 mg Documented by: Potassium Chloride (Potassium Chloride 20 Meq Tab.Er) 40 meq PO ONETIME ONE Stop: 05/30/21 17:10 Last Admin: 05/30/21 18:03 Dose: 40 meq Documented by: Potassium Chloride (Potassium Chloride 20 Meq Tab.Er) 40 meq PO ONETIME ONE Stop: 06/07/21 09:31 Last Admin: 06/07/21 08:29 Dose: 40 meq Documented by: Potassium Chloride (Potassium Chloride 20 Meq Tab.Er) 40 meq PO ONETIME ONE Stop: 06/09/21 08:31 Last Admin: 06/09/21 08:33 Dose: 40 meq Documented by: Spironolactone (Spironolactone 25 Mg Tab) 12.5 mg PO DAILY [facility] Last Admin: 06/11/21 09:11 Dose: 12.5 mg Documented by: Tramadol HCl (Tramadol 50 Mg Tab) 50 mg PO Q4H PRN PRN Reason: Pain Last Admin: 05/30/21 14:37 Dose: 50 mg Documented by: - Exam Quality Assessment: DVT Prophylaxis General: Alert, Oriented, Cooperative, Mild Distress Lungs: Clear to Auscultation, Normal Respiratory Effort, Decreased Breath Sounds Cardiovascular: Regular Rate, Regular Rhythm, No Murmurs GI/Abdominal Exam: Soft, Non-Tender, No Organomegaly, No Distention Extremities: Non-Tender, Pedal Edema - Patient Data Result Diagrams: 06/10/21 04:05 06/10/21 04:05 Sepsis Event Note - Evaluation Sepsis Screening Result: No Definite Risk - Focused Exam Vital Signs: Vital Signs Temp Pulse Resp BP Pulse Ox 06/11/21 10:16 96.3 F L 82 18 141/51 H 82 L 06/11/21 07:01 97.2 F 66 18 151/59 H 93 L 06/11/21 02:27 97.7 F 71 20 151/68 H 95 - Problem List Review Problem List Initiated/Reviewed/Updated: Yes - My Orders Last 24 Hours: My Active Orders 06/11/21 21:00 Spironolactone [Aldactone] 25 mg PO BID 06/12/21 05:00 BASIC METABOLIC PANEL,BMP [CHEM] Timed - Plan Plan:: ASSESSMENT AND PLAN - SEVERE LUMBAR SPINAL STENOSIS-contributing to lower back and radicular pain. Pain control acceptable and she is slowly improving. -Epidural steroid injections contraindicated with coagulopathy -Decadron 2 mg twice daily with meals, today is day 10 -Gabapentin 100 mg p.o. at bedtime -Cymbalta 30 mg p.o. daily -Morphine 7.5 mg as needed (dose reduced 06/07) -Physical therapy consult PRIMARY BILIARY CIRRHOSIS-cholestatic picture with hepatic panel labs and elevated antimitochondrial antibody. Case discussed with gastroenterology at [facility] in [place], likely PBC, suggested trial of ursodeoxycholic acid and outpatient follow-up. She has edema and ascites so diuretics were initiated. -Low-dose furosemide and spironolactone daily -Continue ursodeoxycholic acid 300 mg 3 times daily -Outpatient follow-up with gastroenterology (not urgent, needs to complete physical therapy first) GENERALIZED WEAKNESS-likely secondary to low back pain and left leg weakness with contribution from PBC. Slowly improving. -Daily physical therapy COPD-longstanding smoking history. -Supplemental oxygen as needed TOBACCO DEPENDENCE- -Encourage cessation MAINTENANCE ISSUES -DVT prophylaxis; enoxaparin -GI prophylaxis; not indicated -Uribe catheter; not indicated -Nutrition; regular diet DISPOSITION-anticipate discharge to [facility] for subacute rehab
[2021-06-11] MEDS: Enoxaparin 40 MG/0.4 ML Syringe SUBCUT SCH (16:19)
[2021-06-11] MEDS: Gabapentin 100 MG Cap PO SCH (21:29)
[2021-06-12] MEDS: Furosemide 20 MG Tab PO SCH (08:46)
[2021-06-12] MEDS: Ursodiol 300 MG Cap PO SCH ×3 (08:46→20:58)
[2021-06-12] MEDS: Dexamethasone 2 MG Tab PO SCH ×2 (08:46→16:10)
[2021-06-12] MEDS: Spironolactone 25 MG Tab PO SCH ×2 (08:47→20:58)
[2021-06-12] MEDS: DULoxetine 30 MG Cap PO SCH (08:47)
--- NOTE | 2021-06-12 12:13 | PCM.PN ---
- General Info Date of Service: 06/12/21 Subjective Update: Ms. Ndiaye has remained stable since yesterday. She did slip out of her chair this morning, but landed on her pillow and denies any injury or new pain. Continues to participate in daily physical therapy as well as occupational therapy. Appetite seems to be slowly improving and she has been taking in supplements. Functional Status: Reports: Tolerating Diet, Urinating - Review of Systems General: Reports: Weakness, Fatigue. Denies: Fever, Chills Pulmonary: Reports: No Symptoms Cardiovascular: Reports: No Symptoms Gastrointestinal: Reports: No Symptoms Genitourinary: Reports: No Symptoms - Patient Data Vitals - Most Recent: Last Vital Signs Temp 97.2 F 06/12/21 11:12 Pulse 64 06/12/21 11:12 Resp 16 06/12/21 11:12 BP 146/59 H 06/12/21 11:12 Pulse Ox 94 L 06/12/21 11:12 Weight - Most Recent: 153 lb 3.54 oz I&O - Last 24 Hours: Intake & Output 06/11/21 06/12/21 06/12/21 22:59 06:59 14:59 Intake Total 720 355 260 Balance 720 355 260 Lab Results Last 24 Hours: Laboratory Results - last 24 hr 06/12/21 Range/Units 04:25 Sodium 137 L (140-148) mmol/L Potassium 3.6 (3.6-5.2) mmol/L Chloride 107 (100-108) mmol/L Carbon Dioxide 22 (21-32) mmol/L Anion Gap 11.6 (5.0-14.0) mmol/L BUN 19 H (7-18) mg/dL Creatinine 0.7 (0.6-1.0) mg/dL Est Cr Clr Drug Dosing 54.01 mL/min Estimated GFR (MDRD) > 60 (>60) Glucose 79 (74-106) mg/dL Calcium 8.1 L (8.5-10.1) mg/dL Med Orders - Current: Current Medications Dexamethasone (Dexamethasone 2 Mg Tab) 1 mg PO BIDMEALS [facility] Last Admin: 06/12/21 08:46 Dose: 1 mg Documented by: Duloxetine HCl (Duloxetine 30 Mg Cap) 30 mg PO DAILY [facility] Last Admin: 06/12/21 08:47 Dose: 30 mg Documented by: Enoxaparin Sodium (Enoxaparin 40 Mg/0.4 Ml Syringe) 40 mg SUBCUT Q24H [facility] Last Admin: 06/11/21 16:19 Dose: 40 mg Documented by: Furosemide (Furosemide 20 Mg Tab) 20 mg PO DAILY [facility] Last Admin: 06/12/21 08:46 Dose: 20 mg Documented by: Gabapentin (Gabapentin 100 Mg Cap) 100 mg PO BEDTIME [facility] Last Admin: 06/11/21 21:29 Dose: 100 mg Documented by: Morphine Sulfate (Morphine 15 Mg Tab) 7.5 mg PO Q4H PRN PRN Reason: Pain Last Admin: 06/09/21 23:52 Dose: 7.5 mg Documented by: Ondansetron HCl (Ondansetron 4 Mg/2 Ml Sdv) 4 mg IV Q4H PRN PRN Reason: Nausea/Vomiting Polyethylene Glycol (Polyethylene Glycol 3350 Powder 17 Gm Packet) 17 gm PO DAILY PRN PRN Reason: Constipation Last Admin: 06/09/21 08:39 Dose: 17 gm Documented by: Senna/Docusate Sodium (Docusate Sodium/Sennosides 50-8.6 Mg Tab) 1 tab PO BID [facility] Last Admin: 06/12/21 08:46 Dose: 1 tab Documented by: Spironolactone (Spironolactone 25 Mg Tab) 25 mg PO BID [facility] Last Admin: 06/12/21 08:47 Dose: 25 mg Documented by: Ursodiol (Ursodiol 300 Mg Cap) 300 mg PO TID [facility] Last Admin: 06/12/21 08:46 Dose: 300 mg Documented by: Discontinued Medications Bisacodyl (Bisacodyl 10 Mg Supp) 10 mg RECTAL ONETIME ONE Stop: 06/04/21 11:36 Last Admin: 06/04/21 12:15 Dose: 10 mg Documented by: Bisacodyl (Bisacodyl 10 Mg Supp) 10 mg RECTAL ONETIME ONE Stop: 06/09/21 08:58 Last Admin: 06/09/21 10:04 Dose: 10 mg Documented by: Dexamethasone (Dexamethasone 4 Mg/Ml Sdv) 4 mg IVPUSH Q12H [facility] Last Admin: 06/05/21 17:23 Dose: 4 mg Documented by: Dexamethasone (Dexamethasone 2 Mg Tab) 2 mg PO BIDMEALS [facility] Last Admin: 06/11/21 09:11 Dose: 2 mg Documented by: Furosemide (Furosemide 20 Mg/2 Ml Vial) 20 mg IVPUSH NOW ONE Stop: 06/01/21 17:31 Furosemide (Furosemide 20 Mg/2 Ml Vial) 20 mg IVPUSH NOW ONE Stop: 06/02/21 09:01 Last Admin: 06/02/21 10:11 Dose: 20 mg Documented by: Gabapentin (Gabapentin 100 Mg Cap) 100 mg PO BID [facility] Last Admin: 06/07/21 08:26 Dose: 100 mg Documented by: Hydromorphone HCl (Hydromorphone 0.5 Mg/0.5 Ml Syringe) 0.5 mg IVPUSH Q3H PRN PRN Reason: Pain (severe 7-10) Last Admin: 06/01/21 16:07 Dose: 0.5 mg Documented by: Sodium Chloride (Normal Saline) 80 mls @ 3 mls/sec IV ASDIRECTED [facility] Stop: 05/30/21 16:31 Last Admin: 05/30/21 16:44 Dose: 3 mls/sec Documented by: Sodium Chloride (Normal Saline) 1,000 mls @ 100 mls/hr IV ASDIRECTED [facility] Last Admin: 05/30/21 18:11 Dose: 100 mls/hr Documented by: Iopamidol (Iopamidol 612 Mg/Ml 100 Ml Bottle) 100 ml IV . DIRECTED [facility] Stop: 05/30/21 16:31 Last Admin: 05/30/21 16:44 Dose: 100 ml Documented by: Lorazepam (Lorazepam 0.5 Mg Tab) 0.5 mg PO ONETIME ONE Stop: 05/31/21 10:01 Last Admin: 05/31/21 11:05 Dose: 0.5 mg Documented by: Morphine Sulfate (Morphine 15 Mg Tab) 15 mg PO Q4H PRN PRN Reason: Pain Last Admin: 06/07/21 08:28 Dose: 15 mg Documented by: Oxycodone HCl (Oxycodone 5 Mg Tab) 5 mg PO Q4H PRN PRN Reason: Pain (moderate 4-6) Last Admin: 06/06/21 05:08 Dose: 5 mg Documented by: Potassium Chloride (Potassium Chloride 20 Meq Tab.Er) 40 meq PO ONETIME ONE Stop: 05/30/21 17:10 Last Admin: 05/30/21 18:03 Dose: 40 meq Documented by: Potassium Chloride (Potassium Chloride 20 Meq Tab.Er) 40 meq PO ONETIME ONE Stop: 06/07/21 09:31 Last Admin: 06/07/21 08:29 Dose: 40 meq Documented by: Potassium Chloride (Potassium Chloride 20 Meq Tab.Er) 40 meq PO ONETIME ONE Stop: 06/09/21 08:31 Last Admin: 06/09/21 08:33 Dose: 40 meq Documented by: Spironolactone (Spironolactone 25 Mg Tab) 12.5 mg PO DAILY [facility] Last Admin: 06/11/21 09:11 Dose: 12.5 mg Documented by: Tramadol HCl (Tramadol 50 Mg Tab) 50 mg PO Q4H PRN PRN Reason: Pain Last Admin: 05/30/21 14:37 Dose: 50 mg Documented by: - Exam Quality Assessment: DVT Prophylaxis General: Alert, Oriented, Cooperative, Mild Distress Lungs: Clear to Auscultation, Normal Respiratory Effort, Decreased Breath Sounds Cardiovascular: Regular Rate, Regular Rhythm, No Murmurs GI/Abdominal Exam: Soft, Non-Tender, No Organomegaly, No Distention Extremities: Non-Tender, No Pedal Edema - Patient Data Lab Results Last 24 hrs: Laboratory Results - last 24 hr 06/12/21 Range/Units 04:25 Sodium 137 L (140-148) mmol/L Potassium 3.6 (3.6-5.2) mmol/L Chloride 107 (100-108) mmol/L Carbon Dioxide 22 (21-32) mmol/L Anion Gap 11.6 (5.0-14.0) mmol/L BUN 19 H (7-18) mg/dL Creatinine 0.7 (0.6-1.0) mg/dL Est Cr Clr Drug Dosing 54.01 mL/min Estimated GFR (MDRD) > 60 (>60) Glucose 79 (74-106) mg/dL Calcium 8.1 L (8.5-10.1) mg/dL Result Diagrams: 06/10/21 04:05 06/12/21 04:25 Sepsis Event Note - Evaluation Sepsis Screening Result: No Definite Risk - Focused Exam Vital Signs: Vital Signs Temp Pulse Resp BP Pulse Ox 06/12/21 11:12 97.2 F 64 16 146/59 H 94 L 06/12/21 10:18 96.3 F L 77 16 144/66 H 95 06/12/21 09:15 96.1 F L 63 18 139/65 95 06/12/21 08:15 97.5 F 63 18 172/66 H 96 06/12/21 07:15 96.9 F 63 18 140/54 L 95 06/12/21 02:53 97.6 F 64 16 154/55 H 95 - Problem List Review Problem List Initiated/Reviewed/Updated: Yes - My Orders Last 24 Hours: My Active Orders 06/11/21 17:00 dexAMETHasone 1 mg PO BIDMEALS 06/11/21 21:00 Spironolactone [Aldactone] 25 mg PO BID 06/13/21 05:00 BASIC METABOLIC PANEL,BMP [CHEM] Timed - Plan Plan:: ASSESSMENT AND PLAN - SEVERE LUMBAR SPINAL STENOSIS-contributing to lower back and radicular pain. Pain control acceptable and she is slowly improving. -Epidural steroid injections contraindicated with coagulopathy -Decadron 1 mg twice daily with meals, today is day 1 -Gabapentin 100 mg p.o. at bedtime -Cymbalta 30 mg p.o. daily -Morphine 7.5 mg as needed (dose reduced 06/07) -Physical therapy consult PRIMARY BILIARY CIRRHOSIS-cholestatic picture with hepatic panel labs and elevated antimitochondrial antibody. Case discussed with gastroenterology at [facility] [place], likely PBC, suggested trial of ursodeoxycholic acid and outpatient follow-up. She has edema and ascites so diuretics were initiated. -Low-dose furosemide and spironolactone daily -Continue ursodeoxycholic acid 300 mg 3 times daily -Outpatient follow-up with gastroenterology (not urgent, needs to complete physical therapy first) GENERALIZED WEAKNESS-likely secondary to low back pain and left leg weakness with contribution from PBC. Slowly improving. -Daily physical therapy COPD-longstanding smoking history. -Supplemental oxygen as needed TOBACCO DEPENDENCE- -Encourage cessation MAINTENANCE ISSUES -DVT prophylaxis; enoxaparin -GI prophylaxis; not indicated -Uribe catheter; not indicated -Nutrition; regular diet DISPOSITION-anticipate discharge to senior care for subacute rehab
[2021-06-12] MEDS: Enoxaparin 40 MG/0.4 ML Syringe SUBCUT SCH (14:51)
[2021-06-12] MEDS: Gabapentin 100 MG Cap PO SCH (20:58)
[2021-06-12] MEDS: Morphine 15 MG Tab PO PRN (21:01)
[2021-06-13] MEDS: Spironolactone 25 MG Tab PO SCH ×2 (08:10→20:32)
[2021-06-13] MEDS: Dexamethasone 2 MG Tab PO SCH ×2 (08:10→17:10)
[2021-06-13] MEDS: Ursodiol 300 MG Cap PO SCH ×3 (08:10→20:32)
[2021-06-13] MEDS: Furosemide 20 MG Tab PO SCH (08:11)
[2021-06-13] MEDS: DULoxetine 30 MG Cap PO SCH (08:11)
[2021-06-13] MEDS: Enoxaparin 40 MG/0.4 ML Syringe SUBCUT SCH (13:53)
--- NOTE | 2021-06-13 14:37 | PCM.PN ---
- General Info Date of Service: 06/13/21 Subjective Update: Ms. Ndiaye has been stable since yesterday. Lower back pain seems to be better today and she is slowly regaining strength and able to eat more. Functional Status: Reports: Tolerating Diet, Urinating - Review of Systems General: Reports: Weakness, Fatigue. Denies: Fever, Chills Pulmonary: Reports: No Symptoms Cardiovascular: Reports: No Symptoms Gastrointestinal: Reports: No Symptoms Genitourinary: Reports: No Symptoms Musculoskeletal: Reports: Back Pain - Patient Data Vitals - Most Recent: Last Vital Signs Temp 97.0 F 06/13/21 14:05 Pulse 66 06/13/21 14:05 Resp 18 06/13/21 14:05 BP 145/64 H 06/13/21 14:05 Pulse Ox 95 06/13/21 14:05 Weight - Most Recent: 154 lb 8.705 oz I&O - Last 24 Hours: Intake & Output 06/12/21 06/13/21 06/13/21 22:59 06:59 14:59 Intake Total 640 Balance 640 Lab Results Last 24 Hours: Laboratory Results - last 24 hr 06/13/21 Range/Units 06:05 Sodium 137 L (140-148) mmol/L Potassium 3.6 (3.6-5.2) mmol/L Chloride 107 (100-108) mmol/L Carbon Dioxide 23 (21-32) mmol/L Anion Gap 10.6 (5.0-14.0) mmol/L BUN 19 H (7-18) mg/dL Creatinine 0.8 (0.6-1.0) mg/dL Est Cr Clr Drug Dosing 47.31 mL/min Estimated GFR (MDRD) > 60 (>60) Glucose 68 L (74-106) mg/dL Calcium 8.2 L (8.5-10.1) mg/dL Med Orders - Current: Current Medications Dexamethasone (Dexamethasone 2 Mg Tab) 1 mg PO BIDMEALS [facility] Last Admin: 06/13/21 08:10 Dose: 1 mg Documented by: Duloxetine HCl (Duloxetine 30 Mg Cap) 30 mg PO DAILY [facility] Last Admin: 06/13/21 08:11 Dose: 30 mg Documented by: Enoxaparin Sodium (Enoxaparin 40 Mg/0.4 Ml Syringe) 40 mg SUBCUT Q24H [facility] Last Admin: 06/13/21 13:53 Dose: 40 mg Documented by: Furosemide (Furosemide 20 Mg Tab) 20 mg PO DAILY [facility] Last Admin: 06/13/21 08:11 Dose: 20 mg Documented by: Gabapentin (Gabapentin 100 Mg Cap) 100 mg PO BEDTIME [facility] Last Admin: 06/12/21 20:58 Dose: 100 mg Documented by: Morphine Sulfate (Morphine 15 Mg Tab) 7.5 mg PO Q4H PRN PRN Reason: Pain Last Admin: 06/12/21 21:01 Dose: 7.5 mg Documented by: Ondansetron HCl (Ondansetron 4 Mg/2 Ml Sdv) 4 mg IV Q4H PRN PRN Reason: Nausea/Vomiting Polyethylene Glycol (Polyethylene Glycol 3350 Powder 17 Gm Packet) 17 gm PO DAILY PRN PRN Reason: Constipation Last Admin: 06/09/21 08:39 Dose: 17 gm Documented by: Senna/Docusate Sodium (Docusate Sodium/Sennosides 50-8.6 Mg Tab) 1 tab PO BID [facility] Last Admin: 06/13/21 08:11 Dose: Not Given Documented by: Spironolactone (Spironolactone 25 Mg Tab) 25 mg PO BID [facility] Last Admin: 06/13/21 08:10 Dose: 25 mg Documented by: Ursodiol (Ursodiol 300 Mg Cap) 300 mg PO TID [facility] Last Admin: 06/13/21 13:53 Dose: 300 mg Documented by: Discontinued Medications Bisacodyl (Bisacodyl 10 Mg Supp) 10 mg RECTAL ONETIME ONE Stop: 06/04/21 11:36 Last Admin: 06/04/21 12:15 Dose: 10 mg Documented by: Bisacodyl (Bisacodyl 10 Mg Supp) 10 mg RECTAL ONETIME ONE Stop: 06/09/21 08:58 Last Admin: 06/09/21 10:04 Dose: 10 mg Documented by: Dexamethasone (Dexamethasone 4 Mg/Ml Sdv) 4 mg IVPUSH Q12H [facility] Last Admin: 06/05/21 17:23 Dose: 4 mg Documented by: Dexamethasone (Dexamethasone 2 Mg Tab) 2 mg PO BIDMEALS [facility] Last Admin: 06/11/21 09:11 Dose: 2 mg Documented by: Furosemide (Furosemide 20 Mg/2 Ml Vial) 20 mg IVPUSH NOW ONE Stop: 06/01/21 17:31 Furosemide (Furosemide 20 Mg/2 Ml Vial) 20 mg IVPUSH NOW ONE Stop: 06/02/21 09:01 Last Admin: 06/02/21 10:11 Dose: 20 mg Documented by: Gabapentin (Gabapentin 100 Mg Cap) 100 mg PO BID [facility] Last Admin: 06/07/21 08:26 Dose: 100 mg Documented by: Hydromorphone HCl (Hydromorphone 0.5 Mg/0.5 Ml Syringe) 0.5 mg IVPUSH Q3H PRN PRN Reason: Pain (severe 7-10) Last Admin: 06/01/21 16:07 Dose: 0.5 mg Documented by: Sodium Chloride (Normal Saline) 80 mls @ 3 mls/sec IV ASDIRECTED [facility] Stop: 05/30/21 16:31 Last Admin: 05/30/21 16:44 Dose: 3 mls/sec Documented by: Sodium Chloride (Normal Saline) 1,000 mls @ 100 mls/hr IV ASDIRECTED [facility] Last Admin: 05/30/21 18:11 Dose: 100 mls/hr Documented by: Iopamidol (Iopamidol 612 Mg/Ml 100 Ml Bottle) 100 ml IV . DIRECTED [facility] Stop: 05/30/21 16:31 Last Admin: 05/30/21 16:44 Dose: 100 ml Documented by: Lorazepam (Lorazepam 0.5 Mg Tab) 0.5 mg PO ONETIME ONE Stop: 05/31/21 10:01 Last Admin: 05/31/21 11:05 Dose: 0.5 mg Documented by: Morphine Sulfate (Morphine 15 Mg Tab) 15 mg PO Q4H PRN PRN Reason: Pain Last Admin: 06/07/21 08:28 Dose: 15 mg Documented by: Oxycodone HCl (Oxycodone 5 Mg Tab) 5 mg PO Q4H PRN PRN Reason: Pain (moderate 4-6) Last Admin: 06/06/21 05:08 Dose: 5 mg Documented by: Potassium Chloride (Potassium Chloride 20 Meq Tab.Er) 40 meq PO ONETIME ONE Stop: 05/30/21 17:10 Last Admin: 05/30/21 18:03 Dose: 40 meq Documented by: Potassium Chloride (Potassium Chloride 20 Meq Tab.Er) 40 meq PO ONETIME ONE Stop: 06/07/21 09:31 Last Admin: 06/07/21 08:29 Dose: 40 meq Documented by: Potassium Chloride (Potassium Chloride 20 Meq Tab.Er) 40 meq PO ONETIME ONE Stop: 06/09/21 08:31 Last Admin: 06/09/21 08:33 Dose: 40 meq Documented by: Spironolactone (Spironolactone 25 Mg Tab) 12.5 mg PO DAILY [facility] Last Admin: 06/11/21 09:11 Dose: 12.5 mg Documented by: Tramadol HCl (Tramadol 50 Mg Tab) 50 mg PO Q4H PRN PRN Reason: Pain Last Admin: 05/30/21 14:37 Dose: 50 mg Documented by: - Exam Quality Assessment: DVT Prophylaxis General: Alert, Oriented, Cooperative, Mild Distress Lungs: Clear to Auscultation, Normal Respiratory Effort, Decreased Breath Sounds Cardiovascular: Regular Rate, Regular Rhythm, No Murmurs GI/Abdominal Exam: Soft, Non-Tender, No Organomegaly, No Distention Extremities: Non-Tender, Pedal Edema - Patient Data Lab Results Last 24 hrs: Laboratory Results - last 24 hr 06/13/21 Range/Units 06:05 Sodium 137 L (140-148) mmol/L Potassium 3.6 (3.6-5.2) mmol/L Chloride 107 (100-108) mmol/L Carbon Dioxide 23 (21-32) mmol/L Anion Gap 10.6 (5.0-14.0) mmol/L BUN 19 H (7-18) mg/dL Creatinine 0.8 (0.6-1.0) mg/dL Est Cr Clr Drug Dosing 47.31 mL/min Estimated GFR (MDRD) > 60 (>60) Glucose 68 L (74-106) mg/dL Calcium 8.2 L (8.5-10.1) mg/dL Result Diagrams: 06/10/21 04:05 06/13/21 06:05 Sepsis Event Note - Evaluation Sepsis Screening Result: No Definite Risk - Focused Exam Vital Signs: Vital Signs Temp Pulse Resp BP Pulse Ox 06/13/21 14:05 97.0 F 66 18 145/64 H 95 06/13/21 11:00 96.1 F L 81 18 142/65 H 95 06/13/21 07:00 95.7 F L 65 18 150/59 H 94 L 06/13/21 04:30 96.6 F L 77 18 147/62 H 93 L - Problem List Review Problem List Initiated/Reviewed/Updated: Yes - Plan Plan:: ASSESSMENT AND PLAN - SEVERE LUMBAR SPINAL STENOSIS-contributing to lower back and radicular pain. Pain control acceptable and she is slowly improving. -Epidural steroid injections contraindicated with coagulopathy -Decadron 1 mg twice daily with meals, today is day 2 -Gabapentin 100 mg p.o. at bedtime -Cymbalta 30 mg p.o. daily -Morphine 7.5 mg as needed (dose reduced 06/07) -Physical therapy consult PRIMARY BILIARY CIRRHOSIS-cholestatic picture with hepatic panel labs and eleva oscar antimitochondrial antibody. Case discussed with gastroenterology at [facility], likely PBC, suggested trial of ursodeoxycholic acid and outpatient follow-up. She has edema and ascites so diuretics were initiated. -Low-dose furosemide and spironolactone -Continue ursodeoxycholic acid 300 mg 3 times daily -Outpatient follow-up with gastroenterology (not urgent, needs to complete physical therapy first) GENERALIZED WEAKNESS-likely secondary to low back pain and left leg weakness with contribution from PBC. Slowly improving. -Daily physical therapy COPD-longstanding smoking history. -Supplemental oxygen as needed TOBACCO DEPENDENCE- -Encourage cessation MAINTENANCE ISSUES -DVT prophylaxis; enoxaparin -GI prophylaxis; not indicated -Uribe catheter; not indicated -Nutrition; regular diet DISPOSITION-anticipate discharge to longterm for subacute rehab
[2021-06-13] MEDS: Gabapentin 100 MG Cap PO SCH (20:33)
[2021-06-13] MEDS: Morphine 15 MG Tab PO PRN (21:30)
[2021-06-14] MEDS: Dexamethasone 2 MG Tab PO SCH (08:04)
[2021-06-14] MEDS: Ursodiol 300 MG Cap PO SCH (08:05)
[2021-06-14] MEDS: Spironolactone 25 MG Tab PO SCH (08:05)
[2021-06-14] MEDS: DULoxetine 30 MG Cap PO SCH (08:05)
[2021-06-14] MEDS: Furosemide 20 MG Tab PO SCH (08:06)
--- NOTE | 2021-06-14 12:41 | PCM.DCSUM1 ---
Discharge Summary - Hospital Course Brief History: Ms. Ndiaye 5-year-old woman who was admitted through the emergency department with liver enzyme elevation, generalized weakness, and low back pain radiating to her left leg. - Discharge Data Discharge Date: 06/14/21 Discharge Disposition: Home, Self-Care 01 Condition: Fair - Referral to Home Health Primary Care Physician: Greta Rubio MD - Discharge Diagnosis/Problem(s) (1) Lumbar spinal stenosis SNOMED Code(s): 68599031 ICD Code: M48.061 - SPINAL STENOSIS, LUMBAR REGION WITHOUT NEUROGENIC DESIREE Status: Acute Current Visit: Yes (2) Generalized weakness SNOMED Code(s): 60298454 ICD Code: R53.1 - WEAKNESS Status: Acute Current Visit: Yes (3) Cirrhosis of liver SNOMED Code(s): 60098867 ICD Code: K74.60 - UNSPECIFIED CIRRHOSIS OF LIVER Status: Acute Current Visit: Yes Qualifiers: Hepatic cirrhosis type: unspecified hepatic cirrhosis Ascites presence: with ascites Qualified Code(s): K74.60 - Unspecified cirrhosis of liver; R18.8 - Other ascites (4) Chronic pain SNOMED Code(s): 59052386 ICD Code: G89.29 - OTHER CHRONIC PAIN Status: Chronic Current Visit: No - Patient Summary/Data Consults: Consultations 05/30/21 14:12 PT Evaluation and Treatment [CONS] Routine Please Evaluate and Treat. PT Reason for Consult: weakness Pending Discharge: Yes Special Instructions: back pain, right leg weakness, MRI pending This query below is only for informational purposes and is not editable. Admission Diagnosis/Problem: Weakness 06/05/21 14:18 OT Evaluation and Treatment [CONS] Routine Please Evaluate and Treat. OT Reason for Consult: adls This query below is only for informational purposes and is not editable. Admission Diagnosis/Problem: Weakness Hospital Course: Ms. Ndiaye is a 75-year-old woman who was admitted through the emergency department with generalized weakness, low back pain, left leg pain/weakness, and hepatic cirrhosis. She has had difficulty with low back and leg pain for the past several years. Approximately 1 year ago pain became worse and she has had a hard time functioning. Pain is been worse over the past few weeks and for the last week she is experienced weakness in her left leg. She was seen and evaluated in the emergency department at another facility last week, because of progressive weakness. Laboratory studies showed elevated liver tests with bilirubin of just over 4. CT scan of the abdomen showed evidence of hepatic cirrhosis. She was able to ambulate at that time so she was discharged home and recommended follow-up with gastroenterology. Over the last week prior to admission she developed weakness in her left leg, to the point that she has been unable to ambulate. She was brought into our emergency department by ambulance. Laboratory studies obtained today show improvement in liver studies, bilirubin is now 3.0. She denies any history of significant alcohol use and prior to last week was unaware that she had significant liver disease. She has not been seen for regular health care over the past 12 years. On admission she was given pain medication as well as IV fluids for hydration. MRI was attempted to further evaluate her low back pain but she was unable to lie still long enough to proceed with adequate exam. CT scan was obtained and did show evidence of severe lumbar spinal stenosis. She was started on more aggressive pain management including gabapentin and Cymbalta. She continued to receive intermittent doses of narcotics in the form of oxycodone. She became very leth argic. This was felt to be likely secondary to medication effect. She was switched from oxycodone to morphine and her dose of gabapentin was decreased to 100 mg once daily. She was seen daily throughout her hospital stay by physical therapy and by the time of discharge was noting some good improvement in overall strength as well as oral intake. Laboratory tests were obtained for further evaluation of her cirrhosis, she strongly denied significant alcohol intake. 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 She was started on Actigall 3 times daily. At the time of discharge she was using the morphine only 1 or 2 times a day and was experiencing fairly good pain control. She was kept in the hospital until a safe discharge plan could be accomplished with [facility] placement. She will receive daily physical therapy and Occupational Therapy while at the [facility]. Activity will be as tolerated and she will be on a low-sodium diet. Follow-up appointment has been scheduled with gastroenterology concerning her cirrhosis. As she becomes stronger consider pain clinic appointment and possible referral to spinal surgery to see if she is a candidate to have anything done concerning her spinal stenosis. - Patient Instructions Diet: Low Sodium Activity: As Tolerated Other/Special Instructions: Daily physical therapy and Occupational Therapy while at the [facility]. Lab June 19; [facility] - Discharge Plan *PRESCRIPTION DRUG MONITORING PROGRAM REVIEWED*: Not Applicable *COPY OF PRESCRIPTION DRUG MONITORING REPORT IN PATIENT EMELI: Not Applicable Prescriptions/Med Rec: ursodioL [Actigal] 300 mg PO TID #90 cap Spironolactone [Aldactone] 25 mg PO BID #60 tablet DULoxetine [Cymbalta] 30 mg PO DAILY #30 cap dexAMETHasone [Dexamethasone] 1 mg PO BIDMEALS #14 tablet Furosemide [Lasix] 20 mg PO DAILY #30 tablet Morphine 7.5 mg PO Q4H PRN #15 tablet PRN Reason: Pain Gabapentin [Neurontin] 100 mg PO BEDTIME #30 cap Home Medications: Home Meds DULoxetine [Cymbalta] 30 mg PO DAILY #30 cap 06/14/21 [Rx] Furosemide [Lasix] 20 mg PO DAILY #30 tablet 06/14/21 [Rx] Gabapentin [Neurontin] 100 mg PO BEDTIME #30 cap 06/14/21 [Rx] Morphine 7.5 mg PO Q4H PRN #15 tablet 06/14/21 [Rx] Spironolactone [Aldactone] 25 mg PO BID #60 tablet 06/14/21 [Rx] dexAMETHasone [Dexamethasone] 1 mg PO BIDMEALS #14 tablet 06/14/21 [Rx] ursodioL [Actigal] 300 mg PO TID #90 cap 06/14/21 [Rx] Patient Handouts: Fall Prevention in the Home, Adult, [id number], Ascites, Spinal Stenosis, [id number] Referrals: Amy Christiansen PA-C [Ordering Only Provider] - 07/12/21 11:00 am (please arrive 15 minutes early to register) - Discharge Summary/Plan Comment DC Time >30 min.: No Total # of Minutes for Discharge Time: 20 - Patient Data Vitals - Most Recent: Last Vital Signs Temp 99.3 F 06/14/21 10:30 Pulse 74 06/14/21 10:30 Resp 16 06/14/21 10:30 BP 164/62 H 06/14/21 10:30 Pulse Ox 96 06/14/21 10:30 Weight - Most Recent: 154 lb 8.705 oz I&O - Last 24 hours: Intake & Output 06/13/21 06/14/21 06/14/21 22:59 06:59 14:59 Intake Total 320 Balance 320 Med Orders - Current: Current Medications Dexamethasone (Dexamethasone 2 Mg Tab) 1 mg PO BIDMEALS [facility] Last Admin: 06/14/21 08:04 Dose: 1 mg Documented by: Duloxetine HCl (Duloxetine 30 Mg Cap) 30 mg PO DAILY [facility] Last Admin: 06/14/21 08:05 Dose: 30 mg Documented by: Enoxaparin Sodium (Enoxaparin 40 Mg/0.4 Ml Syringe) 40 mg SUBCUT Q24H [facility] Last Admin: 06/13/21 13:53 Dose: 40 mg Documented by: Furosemide (Furosemide 20 Mg Tab) 20 mg PO DAILY [facility] Last Admin: 06/14/21 08:06 Dose: 20 mg Documented by: Gabapentin (Gabapentin 100 Mg Cap) 100 mg PO BEDTIME [facility] Last Admin: 06/13/21 20:33 Dose: 100 mg Documented by: Morphine Sulfate (Morphine 15 Mg Tab) 7.5 mg PO Q4H PRN PRN Reason: Pain Last Admin: 06/13/21 21:30 Dose: 7.5 mg Documented by: Ondansetron HCl (Ondansetron 4 Mg/2 Ml Sdv) 4 mg IV Q4H PRN PRN Reason: Nausea/Vomiting Polyethylene Glycol (Polyethylene Glycol 3350 Powder 17 Gm Packet) 17 gm PO DAILY PRN PRN Reason: Constipation Last Admin: 06/09/21 08:39 Dose: 17 gm Documented by: Senna/Docusate Sodium (Docusate Sodium/Sennosides 50-8.6 Mg Tab) 1 tab PO BID [facility] Last Admin: 06/14/21 08:05 Dose: 1 tab Documented by: Spironolactone (Spironolactone 25 Mg Tab) 25 mg PO BID [facility] Last Admin: 06/14/21 08:05 Dose: 25 mg Documented by: Ursodiol (Ursodiol 300 Mg Cap) 300 mg PO TID [facility] Last Admin: 06/14/21 08:05 Dose: 300 mg Documented by: Discontinued Medications Bisacodyl (Bisacodyl 10 Mg Supp) 10 mg RECTAL ONETIME ONE Stop: 06/04/21 11:36 Last Admin: 06/04/21 12:15 Dose: 10 mg Documented by: Bisacodyl (Bisacodyl 10 Mg Supp) 10 mg RECTAL ONETIME ONE Stop: 06/09/21 08:58 Last Admin: 06/09/21 10:04 Dose: 10 mg Documented by: Dexamethasone (Dexamethasone 4 Mg/Ml Sdv) 4 mg IVPUSH Q12H [facility] Last Admin: 06/05/21 17:23 Dose: 4 mg Documented by: Dexamethasone (Dexamethasone 2 Mg Tab) 2 mg PO BIDMEALS [facility] Last Admin: 06/11/21 09:11 Dose: 2 mg Documented by: Furosemide (Furosemide 20 Mg/2 Ml Vial) 20 mg IVPUSH NOW ONE Stop: 06/01/21 17:31 Furosemide (Furosemide 20 Mg/2 Ml Vial) 20 mg IVPUSH NOW ONE Stop: 06/02/21 09:01 Last Admin: 06/02/21 10:11 Dose: 20 mg Documented by: Gabapentin (Gabapentin 100 Mg Cap) 100 mg PO BID [facility] Last Admin: 06/07/21 08:26 Dose: 100 mg Documented by: Hydromorphone HCl (Hydromorphone 0.5 Mg/0.5 Ml Syringe) 0.5 mg IVPUSH Q3H PRN PRN Reason: Pain (severe 7-10) Last Admin: 06/01/21 16:07 Dose: 0.5 mg Documented by: Sodium Chloride (Normal Saline) 80 mls @ 3 mls/sec IV ASDIRECTED [facility] Stop: 05/30/21 16:31 Last Admin: 05/30/21 16:44 Dose: 3 mls/sec Documented by: Sodium Chloride (Normal Saline) 1,000 mls @ 100 mls/hr IV ASDIRECTED [facility] Last Admin: 05/30/21 18:11 Dose: 100 mls/hr Documented by: Iopamidol (Iopamidol 612 Mg/Ml 100 Ml Bottle) 100 ml IV . DIRECTED [facility] Stop: 05/30/21 16:31 Last Admin: 05/30/21 16:44 Dose: 100 ml Documented by: Lorazepam (Lorazepam 0.5 Mg Tab) 0.5 mg PO ONETIME ONE Stop: 05/31/21 10:01 Last Admin: 05/31/21 11:05 Dose: 0.5 mg Documented by: Morphine Sulfate (Morphine 15 Mg Tab) 15 mg PO Q4H PRN PRN Reason: Pain Last Admin: 06/07/21 08:28 Dose: 15 mg Documented by: Oxycodone HCl (Oxycodone 5 Mg Tab) 5 mg PO Q4H PRN PRN Reason: Pain (moderate 4-6) Last Admin: 06/06/21 05:08 Dose: 5 mg Documented by: Potassium Chloride (Potassium Chloride 20 Meq Tab.Er) 40 meq PO ONETIME ONE Stop: 05/30/21 17:10 Last Admin: 05/30/21 18:03 Dose: 40 meq Documented by: Potassium Chloride (Potassium Chloride 20 Meq Tab.Er) 40 meq PO ONETIME ONE Stop: 06/07/21 09:31 Last Admin: 06/07/21 08:29 Dose: 40 meq Documented by: Potassium Chloride (Potassium Chloride 20 Meq Tab.Er) 40 meq PO ONETIME ONE Stop: 06/09/21 08:31 Last Admin: 06/09/21 08:33 Dose: 40 meq Documented by: Spironolactone (Spironolactone 25 Mg Tab) 12.5 mg PO DAILY [facility] Last Admin: 06/11/21 09:11 Dose: 12.5 mg Documented by: Tramadol HCl (Tramadol 50 Mg Tab) 50 mg PO Q4H PRN PRN Reason: Pain Last Admin: 05/30/21 14:37 Dose: 50 mg Documented by: - Exam Quality Assessment: Reports: DVT Prophylaxis General: Reports: Alert, Oriented, Cooperative, No Acute Distress Lungs: Reports: Clear to Auscultation, Normal Respiratory Effort Cardiovascular: Reports: Regular Rate, Regular Rhythm, No Murmurs GI/Abdominal Exam: Soft, Non-Tender, No Organomegaly, No Distention Extremities: Non-Tender, No Pedal Edema
== END 2021-06-14 12:15 | disposition home or self-care (01) | DRG 433 ==
LOC: JP.ED 09:58 → JP.MS 12:19 → OBSVTOIN 06-03 12:14
PROVIDERS: ADMIT Hospitalist; ATTEND Hospitalist
DX: R53.1 Weakness (principal); K74.60 Unspecified cirrhosis of liver; K74.3 Primary biliary cirrhosis; R18.8 Other ascites; M48.061 Spinal stenosis, lumbar region without neurogenic claudication; M54.50 Low back pain, unspecified; J44.9 Chronic obstructive pulmonary disease, unspecified; Z20.822 Contact with and (suspected) exposure to COVID-19; F17.210 Nicotine dependence, cigarettes, uncomplicated; M25.552 Pain in left hip; M25.551 Pain in right hip; G89.29 Other chronic pain; Z79.899 Other long term (current) drug therapy; Z71.6 Tobacco abuse counseling
CPT/HCPCS: 0241U; 36415; 70470; 72131; 80048; 80053; 80074; 82140; 82390; 82728; 83516; 83605; 83615; 83735; 85025; 85027; 85610; 86038; 86140; 86255; 96372; 96374; 96375; 97110; 97140; 97162; 97165; 97530; 97535; 99285; 96376; A9270-GY; G0378; J1100; J1170; J1650; J1940; J7030; J8540; Q9967